=== PATIENT | male | born 1985 | race Caucasian/White ===

== ENCOUNTER 2023-08-19 15:05 | Inpatient (IN) | payer OTHER ==
[2023-08-19] MEDS ORDERED: DILTIAZEM DRIP BOLUS FROM BAG 1 MG SOLN IV ONE (16:04)
--- NOTE | 2023-08-19 16:04 | ED ---
General Adult HPI - General Chief complaint: Fever Stated complaint: afib bone infection Time Seen by Provider: 08/19/23 15:21 Source: patient Mode of arrival: ambulatory Limitations: no limitations - History of Present Illness Initial comments: Augustine 38-year-old male with a history of poorly controlled diabetes, hypertension, tobacco abuse. Patient had osteomyelitis of the right pinky toe with MB patient of the toe in the fall. Patient was at school on antibiotics which she completed a couple of weeks ago. Despite being compliant with this treatment he's had progressively worsening pain and swelling. Patient was evaluated at outside hospital today where he was noted to be likely septic with osteomyelitis that his advanced into the foot with a pathological fracture of the cuboid. Patient is also noted be febrile and tachycardic with new onset atrial fibrillation with RVR. Patient was treated at outside hospital with vancomycin and Cardizem and heparin however patient declined ambulance transport IVs were removed and he transported to the ER here for further management. Patient states that he wants the remainder of the bones amputated tomorrow so that he can be at work by Wednesday. - Related Data Home Medications Medication Instructions Recorded Confirmed Dulaglutide [Trulicity] 3 mg SQ TH 08/19/23 08/19/23 Lisdexamfetamine Dimesylate 30 mg PO DAILY PRN 08/19/23 08/19/23 [Vyvanse] Allergies Allergy/AdvReac Type Severity Reaction Status Date / Time cefaclor [From Ceclor] Allergy Unknown Verified 08/19/23 16:21 Penicillins Allergy Unknown Verified 08/19/23 16:21 Childhood Sulfa (Sulfonamide Allergy Unknown Verified 08/19/23 16:21 Antibiotics) Childhood Review of Systems ROS Statement: Those systems with pertinent positive or pertinent negative responses have been documented in the HPI. ROS Other: All systems not noted in ROS Statement are negative. Past Medical History Past Medical History: Atrial Fibrillation, Diabetes Mellitus, Hypertension Additional Past Medical History / Comment(s): Bone infection- right foot. sepsis History of Any Multi-Drug Resistant Organisms: None Reported Additional Past Surgical History / Comment(s): Toe removed right foot Past Psychological History: No Psychological Hx Reported Smoking Status: Current every day smoker Past Alcohol Use History: Occasional Past Drug Use History: None Reported General Exam Limitations: no limitations General appearance: alert, anxious Head exam: Present: atraumatic, normocephalic Eye exam: Present: PERRL Respiratory exam: Absent: respiratory distress Cardiovascular Exam: Present: tachycardia, irregular rhythm GI/Abdominal exam: Absent: distended Rectal exam: Present: deferred Extremities exam: Present: full ROM, other (Right foot in dressing) Neurological exam: Present: alert, oriented X3 Psychiatric exam: Present: agitated Skin exam: Present: warm, dry, other (Chronic wound of right foot) Course Vital Signs 08/19/23 08/19/23 08/19/23 15:36 16:07 16:25 Temperature 100.4 F H Pulse Rate 43 L 160 H Pulse Rate [ 156 H [employer] ] Respiratory 18 18 Rate Blood Pressure 168/88 87/62 O2 Sat by Pulse 99 Oximetry 08/19/23 08/19/23 08/19/23 16:38 17:04 18:25 Temperature 102.9 F H 100.2 F H Pulse Rate 180 H 156 H 122 H Pulse Rate [ [employer] ] Respiratory 24 20 18 Rate Blood Pressure 110/94 135/65 102/58 O2 Sat by Pulse 98 94 L Oximetry 08/19/23 18:49 Temperature 99.5 F Pulse Rate Pulse Rate [ [employer] ] Respiratory Rate Blood Pressure O2 Sat by Pulse Oximetry EKG Findings - EKG Comments: EKG Findings:: EKG interpreted by me, EKG obtained due to tachycardia, EKG obtained at 1600, rate is 149 rhythm is a narrow complex irregularly irregular tachycardic rhythm concerning for atrial fibrillation. QRS 82 QTc 347. There is no apparent ST elevations or depressions is no evidence of acute ischemia or infarction. Procedures - Sepsis Sepsis Focused Exam #1 Time Sepsis Criteria Met: 16:00 Sepsis Focused Exam Date: 08/19/23 Sepsis Focused Exam Time: 18:30 Sepsis Focused Exam Complete: Yes Vital Signs & RN Notes Reviewed: Yes Capillary Refill: < 2 Seconds: Fingers Peripheral Pulses: Strong: Radial (R), Radial (L) Skin Color: Normal for Patient Respiratory Exam: normal lung sounds Cardiovascular Exam: tachycardia, irregular rhythm Medical Decision Making - Medical Decision Making Was pt. sent in by a medical professional or institution (, PA, CONTRACT FORESTER, urgent care, hospital, or fpc...) When possible be specific @ -No Did you speak to anyone other than the patient for history (EMS, parent, family, police, friend...)? What history was obtained from this source @ -No Did you review nursing and triage notes (agree or disagree)? Why? @ -I reviewed and agree with nursing and triage notes Were old charts reviewed (outside hosp., previous admission, EMS record, old EKG, old radiological studies, urgent care reports/EKG's, fpc records)? Report findings @ -No old charts were reviewed Differential Diagnosis (chest pain, altered mental status, abdominal pain women, abdominal pain men, vaginal bleeding, weakness, fever, dyspnea, syncope, headache, dizziness, GI bleed, back pain, seizure, CVA, palpatations, mental health)? @ -not applicable EKG interpreted by me (3pts min.). @ -As above X-rays interpreted by me (1pt min.). @ -None done CT interpreted by me (1pt min.). @ -None done U/S interpreted by me (1pt. min.). @ -None done What testing was considered but not performed or refused? (CT, X-rays, U/S, labs)? Why? @ -None What meds were considered but not given or refused? Why? @ -Patient initially declined Motrin due to having taken an excessive amount prior to transfer Did you discuss the management of the patient with other professionals (professionals i.e. , PA, CONTRACT FORESTER, lab, RT, psych nurse, social staff worker, crane operator, teacher, special assets officer, patient case coordinator)? Give summary @ -This was transferring team, the admitting doctor and infectious disease Was smoking cessation discussed for >3mins.? @ -No Was critical care preformed (if so, how long)? @ -Yes, 45 minutes Were there social determinants of health that impacted care today? How? (Homelessness, low income, unemployed, alcoholism, drug addiction, transportation, low edu. Level, literacy, decrease access to med. care, skilled nursing, rehab)? @ -No Was there de-escalation of care discussed even if they declined (Discuss DNR or withdrawal of care, Hospice)? DNR status @ -Yes, patient wishes to be DO NOT RESUSCITATE he does understand he will likely have to be made full code for the OR should he need surgery What co-morbidities impacted this encounter? (DM, HTN, Smoking, COPD, CAD, Cancer, CVA, ARF, Chemo, Hep., AIDS, mental health diagnosis, sleep apnea, morbid obesity)? @ - Diabetes Was patient admitted / discharged? Hospital course, mention meds given and route, prescriptions, significant lab abnormalities, going to OR and other pertinent info. @ -Admit Met sepsis criteria at outpatient Hospital received antibiotics and IV fluids Patient was seen and evaluated immediately upon arrival to the emergency department. In the triage azar it was noted that he was bradycardic however on exam he was profoundly tachycardic he was taken to the resuscitation bay to and a septic workup was initiated. Review of previous ER notes stated that the patient converted from A. fib RVR to sinus rhythm with Cardizem. Cardizem and heparin were ordered for new onset A. fib. Vancomycin was ordered patient received a dose prior to arrival, additional dose given here His and was titrated up due to persistent tachycardia Antipyretics and fluids ordered for sepsis - patient clinically improving, Undiagnosed new problem with uncertain prognosis? @ -No Drug Therapy requiring intensive monitoring for toxicity (Heparin, Nitro, Insulin, Cardizem)? @ -No Were any procedures done? @ -No Diagnosis/symptom? @ -Sepsis Acute, or Chronic, or Acute on Chronic? @ -Acute Uncomplicated (without systemic symptoms) or Complicated (systemic symptoms)? @ -Complicated Side effects of treatment? @ -No Exacerbation, Progression, or Severe Exacerbation? @ -No Poses a threat to life or bodily function? How? (Chest pain, USA, LA, pneumonia, PE, COPD, DKA, ARF, appy, cholecystitis, CVA, Diverticulitis, Homicidal, Suicidal, threat to staff... and all critical care pts) @ -Yes can advance his septic shock resulting in cardiovascular collapse Diagnosis/symptom? @ Osteomyelitis Acute, or Chronic, or Acute on Chronic? @ -Chronic Uncomplicated (without systemic symptoms) or Complicated (systemic symptoms)? @ -Complicated causing sepsis Side effects of treatment? @ -none Exacerbation, Progression, or Severe Exacerbation] @ -no Poses a threat to life or bodily function? @ -Yes Diagnosis/symptom? @ -New onset Afib RVR Acute, or Chronic, or Acute on Chronic? @ -default Uncomplicated (without systemic symptoms) or Complicated (systemic symptoms)? @ -Complicated Side effects of treatment? @ -none Exacerbation, Progression, or Severe Exacerbation] @ -no Poses a threat to life or bodily function? @ -Yes - Lab Data Result diagrams: 08/19/23 16:38 08/19/23 16:38 Lab Results 08/19/23 08/19/23 08/19/23 Range/Units 16:38 16:38 16:38 WBC 25.8 H (3.8-10.6) k/uL RBC 4.16 L (4.30-5.90) m/uL Hgb 13.4 (13.0-17.5) gm/dL Hct 40.9 (39.0-53.0) % MCV 98.5 (80.0-100.0) fL MCH 32.3 (25.0-35.0) pg MCHC 32.8 (31.0-37.0) g/dL RDW 12.0 (11.5-15.5) % Plt Count 370 (150-450) k/uL MPV 8.1 Neutrophils % 87 % Lymphocytes % 5 % Monocytes % 4 % Eosinophils % 2 % Basophils % 0 % Neutrophils # 22.5 H (1.3-7.7) k/uL Lymphocytes # 1.3 (1.0-4.8) k/uL Monocytes # 1.0 (0-1.0) k/uL Eosinophils # 0.6 (0-0.7) k/uL Basophils # 0.1 (0-0.2) k/uL PT 11.9 (10.0-12.5) sec INR 1.1 (<1.2) APTT 25.4 (22.0-30.0) sec Sodium 133 L (137-145) mmol/L Potassium 4.8 (3.5-5.1) mmol/L Chloride 101 (98-107) mmol/L Carbon Dioxide 17 L (22-30) mmol/L Anion Gap 15 mmol/L BUN 20 (9-20) mg/dL Creatinine 1.02 (0.66-1.25) mg/dL Est GFR (CKD-EPI)AfAm >90 (>60 ml/min/1.73 sqM) Est GFR (CKD-EPI)NonAf >90 (>60 ml/min/1.73 sqM) Glucose 433 H (74-99) mg/dL Plasma Lactic Acid Ezio (0.7-2.0) mmol/L Calcium 8.7 (8.4-10.2) mg/dL Total Bilirubin 0.8 (0.2-1.3) mg/dL AST 28 (17-59) U/L ALT 25 (4-49) U/L Alkaline Phosphatase 194 H (38-126) U/L Total Protein 7.4 (6.3-8.2) g/dL Albumin 3.6 (3.5-5.0) g/dL 08/19/23 Range/Units 16:38 WBC (3.8-10.6) k/uL RBC (4.30-5.90) m/uL Hgb (13.0-17.5) gm/dL Hct (39.0-53.0) % MCV (80.0-100.0) fL MCH (25.0-35.0) pg MCHC (31.0-37.0) g/dL RDW (11.5-15.5) % Plt Count (150-450) k/uL MPV Neutrophils % % Lymphocytes % % Monocytes % % Eosinophils % % Basophils % % Neutrophils # (1.3-7.7) k/uL Lymphocytes # (1.0-4.8) k/uL Monocytes # (0-1.0) k/uL Eosinophils # (0-0.7) k/uL Basophils # (0-0.2) k/uL PT (10.0-12.5) sec INR (<1.2) APTT (22.0-30.0) sec Sodium (137-145) mmol/L Potassium (3.5-5.1) mmol/L Chloride (98-107) mmol/L Carbon Dioxide (22-30) mmol/L Anion Gap mmol/L BUN (9-20) mg/dL Creatinine (0.66-1.25) mg/dL Est GFR (CKD-EPI)AfAm (>60 ml/min/1.73 sqM) Est GFR (CKD-EPI)NonAf (>60 ml/min/1.73 sqM) Glucose (74-99) mg/dL Plasma Lactic Acid Ezio 3.8 H* (0.7-2.0) mmol/L Calcium (8.4-10.2) mg/dL Total Bilirubin (0.2-1.3) mg/dL AST (17-59) U/L ALT (4-49) U/L Alkaline Phosphatase (38-126) U/L Total Protein (6.3-8.2) g/dL Albumin (3.5-5.0) g/dL Disposition Clinical Impression: Sepsis, Atrial fibrillation with RVR, New onset a-fib, Osteomyelitis Disposition: ADMITTED IP TO THIS HOSP Condition: Serious Is patient prescribed a controlled substance at d/c from ED?: No
[2023-08-19] MEDS: IBUPROFEN 600 MG TAB PO STA ×2 (16:22→16:29)
[2023-08-19] MEDS: ACETAMINOPHEN TAB 500 MG TAB PO STA ×2 (16:22→16:24)
[2023-08-19] MEDS: DILTIAZEM 125 MG in SODIUM CHLORIDE 0.9% 100 ML IV SCH ×2 (16:36→23:53)
[2023-08-19] MEDS: HEPARIN SOD,PORK IN 0.45% NACL 25,000 UNIT in 0.45% NACL 1 250ML.BAG IV SCH (16:36)
[2023-08-19] MEDS ORDERED: ACETAMINOPHEN IV (For NPO) 1,000 MG in EMPTY BAG 1 BAG IVPB STA (16:37)
[2023-08-19] MEDS ORDERED: MAG HYDROX/AL HYDROX/SIMETH 30 ML, HYOSCYAMINE ELIXIR 10 ML, LIDOCAINE VISCOUS 200 MG PO STA ×3 (16:44)
[2023-08-19] MEDS ORDERED: ACETAMINOPHEN TAB 325 MG TAB PO PRN (17:02)
[2023-08-19] MEDS ORDERED: NALOXONE 0.4 MG/ML 1 ML VIAL IV PRN (17:02)
[2023-08-19] MEDS ORDERED: VANCOMYCIN IV PER PHARMACY 1 EACH MISC MISCELLANE PRN (17:07)
[2023-08-19] MEDS ORDERED: VANCOMYCIN 1,500 MG in SODIUM CHLORIDE 0.9% 500 ML 500 ML IVPB STA (17:11)
[2023-08-19 17:27] LABS: Basophils # (A) 0.1 k/uL (0-0.2); Basophils % (A) 0 %; Eosinophils # (A) 0.6 k/uL (0-0.7); Eosinophils % (A) 2 %; HCT 40.9 % (39.0-53.0); HGB 13.4 gm/dL (13.0-17.5); Lymphocytes # (A) 1.3 k/uL (1.0-4.8); Lymphocytes % (A) 5 %; MCH 32.3 pg (25.0-35.0); MCHC 32.8 g/dL (31.0-37.0); MCV 98.5 fL (80.0-100.0); Mean Platelet Volume 8.1; Monocytes % (A) 4 %; Neutrophils # (A) 22.5 k/uL (1.3-7.7); Neutrophils % (A) 87 %; Platelet Count 370 k/uL (150-450); RBC 4.16 m/uL (4.30-5.90); WBC 25.8 k/uL (3.8-10.6)
[2023-08-19 17:36] LABS: INR 1.1 (<1.2); Partial Thromboplastin Time 25.4 sec (22.0-30.0); Prothrombin Time 11.9 sec (10.0-12.5)
[2023-08-19] MEDS: SODIUM CHLORIDE 0.9% 1,000 ML IV SCH (17:39)
[2023-08-19 17:57] LABS: ALT 25 U/L (4-49); African American GFR (CKD) >90 (>60 ml/min/1.73 sqM); Albumin 3.6 g/dL (3.5-5.0); Anion Gap 15 mmol/L; Blood Urea Nitrogen 20 mg/dL (9-20); Calcium 8.7 mg/dL (8.4-10.2); Carbon Dioxide 17 mmol/L (22-30); Chloride 101 mmol/L (98-107); Glucose 433 mg/dL (74-99); Non-African American GFR(CKD) >90 (>60 ml/min/1.73 sqM); Sodium 133 mmol/L (137-145); Total Bilirubin 0.8 mg/dL (0.2-1.3); Total Protein 7.4 g/dL (6.3-8.2)
[2023-08-19 17:58] LABS: AST 28 U/L (17-59); Alkaline Phosphatase 194 U/L (38-126); Potassium 4.8 mmol/L (3.5-5.1)
[2023-08-19] MEDS ORDERED: ERTAPENEM 1 GM in SODIUM CHLORIDE 0.9% 50 ML IVPB STA (18:51)
[2023-08-19] MEDS ORDERED: INSULIN REGULAR 100 UNIT/ML VIAL (IV) IV ONE (18:53)
[2023-08-19 20:10] LABS: Glucose,Whole Blood 405 mg/dL (70-110)
--- NOTE | 2023-08-19 21:39 | CT ---
EXAMINATION TYPE: CT chest wo con CT DLP: 661.2 mGycm, Automated exposure control for dose reduction was used. DATE OF EXAM: 08/19/2023 9:31 PM COMPARISON: None. CLINICAL INDICATION:Male, 38 years old with history of cap; AFIB TECHNIQUE: Multiple axial images were obtained through the chest. Sagittal and coronal reformats were created for review. Contrast used: (None if empty) Oral contrast used: (None if empty) FINDINGS: LUNGS/ PLEURA: Subsegmental atelectasis is present in the lung bases. No evidence of pleural effusion or pneumothorax. AIRWAY: Patent and unremarkable. HEART: Size within normal limits. MEDIASTINUM: No gross evidence of adenopathy. VASCULATURE: No aortic aneurysm. MUSCULOSKELETAL: No acute osseous abnormalities SOFT TISSUES/LYMPH NODES: Unremarkable. LOWER NECK: No significant findings. UPPER ABDOMEN: No significant findings. IMPRESSION: No acute process.
[2023-08-19] MEDS: IBUPROFEN 400 MG TAB PO PRN (21:53)
[2023-08-19] MEDS: HEPARIN SODIUM 1,000 UN/ML (10ML VL) IV PRN (23:53)
[2023-08-20] MEDS ORDERED: DEXTROSE 50% SYRINGE 50 ML IVP PRN ×2 (00:24)
--- NOTE | 2023-08-20 01:22 | HP ---
HISTORY AND PHYSICAL HISTORY OF PRESENT ILLNESS: This is a 38-year-old white male, chronic history of smoking for many years, about 40- t0 [id number], worsening wound in the right lower leg, then not improving after like 10 months. Atrial fibrillation with RVR. He came to the ER with atrial fibrillation RVR, worsening swelling in his legs. He was thought to have osteomyelitis and an MRI was sent to the hospital for pathological fractures 2 way, once his bones were removed surgically, so will get a vascular consult that is pending. ALLERGIES: Penicillin. PAST MEDICAL HISTORY: Atrial fibrillation, diabetes mellitus, hypertension. SOCIAL HISTORY: Current everyday smoker. PHYSICAL EXAMINATION: VITAL SIGNS: T-max is 100.4, pulse rate mid 100s, respiratory rate 18, O2 99%. CARDIOVASCULAR: S1, S2, irregularly irregular rhythm. LUNGS: Show rales at the bases, rhonchi at bases. HEMATOLOGIC: 2 to 3+ edema. EXTREMITIES: Right lower leg and ankle are severely swollen, about 50% foot. EKG shows sinus tachycardia versus atrial fibrillation, treated with Cardizem drip. Vancomycin started for healthcare acquired pneumonia. Leukocytosis. White count was 25.8. Sodium is low at 133. Sugars 433 uncontrolled. Lactic acid 3.9. ASSESSMENT: Lactic acidosis sepsis, osteomyelitis of the foot, insulin-dependent diabetes mellitus, uncontrolled COPD. Prognosis guarded. IV antibiotics updraft. Echo, EKG atrial fibrillation control. Cardiology consult. Infectious Disease consult. Vascular consult. MMDOML / RICARDON: [id number] /
[2023-08-20 06:12] LABS: Glucose,Whole Blood 201 mg/dL (70-110)
[2023-08-20] MEDS: DILTIAZEM 125 MG in SODIUM CHLORIDE 0.9% 100 ML IV SCH (06:24)
[2023-08-20] MEDS: INSULIN ASPART (NovoLOG) 100 UNIT/ML VIAL SQ SCH ×4 (06:25→20:43)
[2023-08-20] MEDS: SODIUM CHLORIDE 0.9% 1,000 ML IV SCH ×2 (06:26→17:48)
[2023-08-20] MEDS: VANCOMYCIN 1,500 MG in SODIUM CHLORIDE 0.9% 500 ML 500 ML IVPB SCH ×2 (06:27→17:47)
[2023-08-20 08:00] LABS: Basophils # (A) 0.1 k/uL (0-0.2); Basophils % (A) 0 %; Eosinophils # (A) 0.3 k/uL (0-0.7); Eosinophils % (A) 1 %; HGB 11.1 gm/dL (13.0-17.5); Lymphocytes # (A) 1.6 k/uL (1.0-4.8); Lymphocytes % (A) 7 %; MCH 32.8 pg (25.0-35.0); MCHC 33.7 g/dL (31.0-37.0); MCV 97.4 fL (80.0-100.0); Mean Platelet Volume 7.6; Monocytes # (A) 0.9 k/uL (0-1.0); Monocytes % (A) 4 %; Neutrophils # (A) 19.7 k/uL (1.3-7.7); Neutrophils % (A) 86 %; Platelet Count 319 k/uL (150-450); RBC 3.39 m/uL (4.30-5.90); RDW 12.2 % (11.5-15.5); WBC 23.1 k/uL (3.8-10.6)
[2023-08-20 08:16] LABS: African American GFR (CKD) >90 (>60 ml/min/1.73 sqM); Anion Gap 8 mmol/L; Blood Urea Nitrogen 20 mg/dL (9-20); Calcium 7.8 mg/dL (8.4-10.2); Carbon Dioxide 19 mmol/L (22-30); Chloride 107 mmol/L (98-107); Glucose 204 mg/dL (74-99); Non-African American GFR(CKD) >90 (>60 ml/min/1.73 sqM); Potassium 3.7 mmol/L (3.5-5.1); Sodium 134 mmol/L (137-145)
[2023-08-20 08:19] LABS: Prothrombin Time 11.3 sec (10.0-12.5)
[2023-08-20] MEDS ORDERED: HEPARIN SODIUM 1,000 UN/ML (10ML VL) IVP STA ×3 (08:34→16:28)
[2023-08-20] MEDS ORDERED: ERTAPENEM 1 GM in SODIUM CHLORIDE 0.9% 50 ML IVPB SCH (09:00)
[2023-08-20] MEDS: METOPROLOL TARTRATE 50 MG TAB PO SCH ×2 (09:23→19:58)
[2023-08-20] MEDS: IPRATROPIUM-ALBUTEROL 3 ML NEB INHALATION SCH ×4 (09:42→21:21)
[2023-08-20] MEDS: HEPARIN SOD,PORK IN 0.45% NACL 25,000 UNIT in 0.45% NACL 1 250ML.BAG IV SCH (10:33)
[2023-08-20] MEDS ORDERED: ACETAMINOPHEN IV (For NPO) 1,000 MG in EMPTY BAG 1 BAG IVPB ONE (10:35)
--- NOTE | 2023-08-20 10:38 | CA ---
Transthoracic Echo Report Name: Augustine Newberry Age: 38 Gender: M : 1985 Exam Date: 08/20/2023 08:58 Exam Location: [facility] Ht (in): 69 Wt (lb): 210 Ordering Physician: Bonifacio Vázquez MD Attending/Referring Phys: Cranberry Grower Mary Jenkins RDCS Procedure CPT: Indications: CAD Cardiac Hx: Technical Quality: Good Contrast 1: Total Dose (mL): Contrast 2: Total Dose (mL): MEASUREMENTS (Male / Female) Normal Values 2D ECHO LV Diastolic Diameter PLAX 4.8 cm 4.2 - 5.9 / 3.9 - 5.3 cm LV Systolic Diameter PLAX 3.7 cm IVS Diastolic Thickness 1.5 cm 0.6 - 1.0 / 0.6 - 0.9 cm LVPW Diastolic Thickness 1.4 cm 0.6 - 1.0 / 0.6 - 0.9 cm LV Relative Wall Thickness 0.6 RV Internal Dim ED PLAX 3.4 cm LA Systolic Diameter LX 4.0 cm 3.0 - 4.0 / 2.7 - 3.8 cm LV Diastolic Volume MOD 4C 125.3 cm??? LV Systolic Volume MOD 4C 66.5 cm??? LV Ejection Fraction MOD 4C 47.0 % LV Cardiac Index MOD 4C 2564.6 cm???/min???m??? LV Diastolic Length 4C 9.4 cm LV Systolic Length 4C 7.4 cm LV Diastolic Volume MOD 2C 116.6 cm??? LV Systolic Volume MOD 2C 61.1 cm??? LV Ejection Fraction MOD 2C 47.6 % LV Cardiac Index MOD 2C 2419.2 cm???/min???m??? LV Diastolic Length 2C 9.2 cm LV Systolic Length 2C 7.5 cm LA Volume 80.0 cm??? 18 - 58 / 22 - 52 cm??? LA Volume Index 36.7 cm???/m??? 16 - 28 cm???/m??? M-MODE Aortic Root Diameter MM 4.0 cm LA Systolic Diameter MM 4.1 cm LA Ao Ratio MM 1.0 AV Cusp Separation MM 2.7 cm DOPPLER AV Peak Velocity 177.0 cm/s AV Peak Gradient 12.5 mmHg Mitral E Point Velocity 129.1 cm/s Mitral A Point Velocity 72.7 cm/s Mitral E to A Ratio 1.8 MV Deceleration Time 146.6 ms TR Peak Velocity 210.4 cm/s TR Peak Gradient 17.7 mmHg Right Ventricular Systolic Press 28.0 mmHg FINDINGS Left Ventricle Left ventricular ejection fraction is estimated at 55-60 %. Left ventricular cavity size normal. Moderately increased septal wall thickness. Right Ventricle Mild right ventricular dilatation. Right ventricular systolic pressure within normal limits. Right Atrium Normal right atrial size. Left Atrium Moderately increased left atrial volume. Mildly increased left atrial area. Mitral Valve Structurally normal mitral valve. Mild mitral regurgitation. Aortic Valve Trileaflet aortic valve. No aortic valve stenosis or regurgitation. Tricuspid Valve Structurally normal tricuspid valve. Mild tricuspid regurgitation. Pulmonic Valve Structurally normal pulmonic valve. No pulmonic regurgitation. Pericardium No pericardial effusion. Aorta Mild aortic dilatation at the level of the sinuses of valsalva 40 mm CONCLUSIONS Mild LVH with preserved systolic function Previewed by: Dr. Flaco North MD (Electronically Signed) Final Date: 20 August 2023 10:37
[2023-08-20] MEDS ORDERED: TRULICITY 3 MG/0.5 ML SQ SCH (12:00)
--- NOTE | 2023-08-20 12:12 | P.CRDCN ---
History of Present Illness Consult date: 08/20/23 Consult reason: atrial fibrillation (With RVR) History of present illness: History of present illness: This is a 38-year-old male with past medical history of uncontrolled diabetes, osteomyelitis of the right foot, tobacco use and dependence, hemochromatosis, tobacco use and dependence. We have been asked to evaluate the patient for A- fib with RVR. Patient has no previous history of atrial fibrillation and does not follow with a supervisor pastry. Patient was at [facility] for fever of 103-104 that had been going on for about 2 weeks and also had tachycardia thought to be in atrial fibrillation was started on heparin drip and Cardizem drip. He had an outpatient MRI done on August 18 which did show osteomyelitis of the right foot. Patient was transferred to [facility] for further evaluation and treatment. EKG sinus rhythm with no acute ST changes. Echocardiogram reveals mild LVH with preserved systolic function, mild mitral regurgitation, no aortic valve stenosis or regurgitation. Mild tricuspid regurgitation. CTA of the chest reveals no acute process. WBC 25.8 now 23.1, hemoglobin 9.1, platelet count 319. INR 1. Sodium 134, potassium 3.7, BUN 20 creatinine 1.01. Initial blood sugar was 433. Lactic acid 1.2. Alkaline phosphatase 194 otherwise liver function tests were normal. Home cardiac medications: None Review Of Systems: At the time of my evaluation: Constitutional: No fever, no chills. No weakness, fatigue or lethargy. EENT: No headache. No dizziness. Lungs: No shortness of breath, cough, no sputum production. No wheezing. Cardiovascular: No chest pain, no lower extremity edema. No palpitations. No paroxysmal nocturnal dyspnea. No orthopnea. No lightheadedness or dizziness. No syncopal episodes. Abdominal: No abdominal pain. No nausea, vomiting. No diarrhea. No constipation. No bloody or tarry stools. Genitourinary: No dysuria.. No urinary retention. Musculoskeletal: No myalgias. No muscle weakness, no frequent falls. No back pain. No neck pain. Integumentary: No wounds. No rash. No unusual bruising. Neurologic: No aphasia. No facial droop. No change in mentation. No head injury. No headache. Physical examination: Gen: This is a 38-year-old male in no acute distress VS: reviewed blood pressure 116/68, heart rate 90 HEENT: Head is atraumatic, normocephalic. Pupils equal, round. Sclerae is anicteric. NECK: Supple. No JVD. . LUNGS: Clear to auscultation. No wheezes or rhonchi. No intercostal retractions. HEART: Regular rate and rhythm. No murmur. ABDOMEN: Soft No tenderness. EXTREMITIES: No pedal edema. No calf tenderness. NEUROLOGICAL: Patient is awake, alert and oriented x3. Assessment: New onset atrial fibrillation, paroxysmal Uncontrolled diabetes Osteomyelitis of the right foot Active tobacco use and dependence Plan: Continue patient on heparin drip until evaluated by vascular surgery. Patient will be started on Eliquis following any surgical procedures. Discontinue Cardizem drip Start patient on Lopressor 50 mg twice daily Further recommendations to follow based upon clinical course Thank you kindly for this consultation. Nurse practitioner note has been reviewed, I agree with documented findings and plan of care. Patient was seen and examined. Past Medical History Past Medical History: Atrial Fibrillation, Diabetes Mellitus, Hypertension Additional Past Medical History / Comment(s): Bone infection- right foot. sepsis History of Any Multi-Drug Resistant Organisms: None Reported Past Surgical History: Orthopedic Surgery Additional Past Surgical History / Comment(s): Toe removed right foot Past Anesthesia/Blood Transfusion Reactions: No Reported Reaction Past Psychological History: No Psychological Hx Reported Smoking Status: Current every day smoker Past Alcohol Use History: Occasional Past Drug Use History: None Reported Medications and Allergies Home Medications Medication Instructions Recorded Confirmed Type Dulaglutide [Trulicity] 3 mg SQ TH 08/19/23 08/19/23 History Lisdexamfetamine Dimesylate 30 mg PO DAILY PRN 08/19/23 08/19/23 History [Vyvanse] Allergies Allergy/AdvReac Type Severity Reaction Status Date / Time cefaclor [From [facility]] Allergy Unknown Verified 08/19/23 16:21 Penicillins Allergy Unknown Verified 08/19/23 16:21 Childhood Sulfa (Sulfonamide Allergy Unknown Verified 08/19/23 16:21 Antibiotics) Childhood Physical Exam Vitals: Vital Signs Temp Pulse Pulse Resp BP BP Pulse Ox 08/20/23 09:50 99 08/20/23 09:44 100 08/20/23 09:42 101 H 08/20/23 08:00 98.4 F 100 16 138/66 95 08/20/23 04:00 97.6 F 90 16 116/68 94 L 08/20/23 02:00 89 18 08/20/23 00:00 98.0 F 89 18 105/63 94 L 08/19/23 20:00 97.6 F 121 H 18 104/60 97 08/19/23 18:49 99.5 F 08/19/23 18:25 100.2 F H 122 H 18 102/58 94 L 08/19/23 17:04 102.9 F H 156 H 20 135/65 98 08/19/23 16:38 180 H 24 110/94 08/19/23 16:25 160 H 18 87/62 08/19/23 16:07 156 H 08/19/23 15:36 100.4 F H 43 L 18 168/88 99 Intake and Output 08/19/23 08/20/23 08/20/23 22:59 06:59 14:59 Intake Total 18.250 249.00 620.217 Balance 18.250 249.00 620.217 Intake: Intake, IV Titration 18.250 249.00 140.217 Amount Diltiazem 125 mg In 18.250 176.00 Sodium Chloride 0.9% 100 ml @ 5 MG/HR 5 mls/hr IV .Q24H [facility] Rx#:[id number] Heparin Sod,Pork in 0.45% 73 140.217 NaCl 25,000 unit In 0.45 % NaCl 1 250ml.bag @ 10. 498 UNITS/KG/HR 10 mls/hr IV .Q24H [facility] Rx#: [id number] Oral 480 Other: Voiding Method Toilet Toilet Toilet Urinal Urinal Urinal # Voids 1 1 Weight 95.254 kg Results 08/20/23 07:36 08/20/23 07:36 Cardiac Enzymes 08/19/23 Range/Units 16:38 AST 28 (17-59) U/L Coagulation 08/19/23 08/19/23 08/20/23 Range/Units 16:38 22:37 07:36 PT 11.9 11.3 (10.0-12.5) sec APTT 25.4 30.4 H (22.0-30.0) sec 08/20/23 Range/Units 07:36 PT (10.0-12.5) sec APTT 29.4 (22.0-30.0) sec CBC 08/19/23 08/20/23 Range/Units 16:38 07:36 WBC 25.8 H 23.1 H (3.8-10.6) k/uL RBC 4.16 L 3.39 L (4.30-5.90) m/uL Hgb 13.4 11.1 L (13.0-17.5) gm/dL Hct 40.9 33.0 L (39.0-53.0) % Plt Count 370 319 (150-450) k/uL Comprehensive Metabolic Panel 08/19/23 08/20/23 Range/Units 16:38 07:36 Sodium 133 L 134 L (137-145) mmol/L Potassium 4.8 3.7 (3.5-5.1) mmol/L Chloride 101 107 (98-107) mmol/L Carbon Dioxide 17 L 19 L (22-30) mmol/L BUN 20 20 (9-20) mg/dL Creatinine 1.02 1.01 (0.66-1.25) mg/dL Glucose 433 H 204 H (74-99) mg/dL Calcium 8.7 7.8 L (8.4-10.2) mg/dL AST 28 (17-59) U/L ALT 25 (4-49) U/L Alkaline Phosphatase 194 H (38-126) U/L Total Protein 7.4 (6.3-8.2) g/dL Albumin 3.6 (3.5-5.0) g/dL Current Medications Generic Name Dose Route Start Last Admin Trade Name Johnq PRN Reason Stop Dose Admin Acetaminophen 650 mg 08/19/23 17:02 Acetaminophen Tab 325 Mg Tab PO Q6HR PRN Mild Pain or Fever > 100.5 Albuterol/Ipratropium 3 ml 08/20/23 08:00 08/20/23 09:42 Ipratropium-Albuterol 3 Ml Neb INHALATION 3 ml RT-QID [facility] Administration Dextrose/Water 25 ml 08/20/23 00:24 Dextrose 50% Syringe 50 Ml IVP PER PROTOCOL PRN Hypoglycemia Protocol Dextrose/Water 50 ml 08/20/23 00:24 Dextrose 50% Syringe 50 Ml IVP PER PROTOCOL PRN Hypoglycemia Protocol Heparin Sodium (Porcine) 0 unit 08/19/23 16:04 08/19/23 23:53 Heparin Sodium 1,000 Un/Ml (10ml Vl) IV 4,750 unit PER PROTOCOL PRN Administration Low PTT Protocol Hydromorphone HCl 0.5 mg 08/19/23 17:02 Hydromorphone 0.5 Mg/0.5 Ml Syringe IVP Q3HR PRN Moderate Pain (Scale 4 to 6) Heparin Sodium/Sodium Chloride 250 mls @ 10 mls/hr 08/19/23 16:30 08/20/23 10:33 25,000 unit/ Sodium Chloride IV 16.5 units/kg/hr .Q24H [facility] 15.717 mls/hr Administration Protocol 10.498 UNITS/KG/HR Sodium Chloride 1,000 mls @ 75 mls/hr 08/19/23 17:15 08/20/23 06:26 Saline 0.9% IV 75 mls/hr .[id number] [facility] Administration Vancomycin HCl 1,500 mg/ 500 mls @ 167 mls/hr 08/20/23 06:00 08/20/23 06:27 Sodium Chloride IVPB 167 mls/hr Q12H [facility] Administration Ertapenem 1 gm/ Sodium 50 mls @ 100 mls/hr 08/20/23 09:00 08/20/23 10:32 Chloride IVPB 100 mls/hr DAILY [facility] Administration Protocol Ibuprofen 400 mg 08/19/23 17:02 08/19/23 21:53 Ibuprofen 400 Mg Tab PO 400 mg Q6HR PRN Administration Mild Pain or Fever > 100.5 Insulin Aspart 0 unit 08/20/23 07:30 08/20/23 06:25 Insulin Aspart (Novolog) 100 Unit/Ml Vial SQ 4 unit ACHS [facility] Administration Protocol Metoprolol Tartrate 50 mg 08/20/23 09:00 08/20/23 09:23 Metoprolol Tartrate 50 Mg Tab PO 50 mg BID [facility] Administration Miscellaneous Information 0 each 08/21/23 17:00 Vancomycin Trough Due 1 Each Misc MISCELLANE 08/21/23 17:01 DIRECTED ONE Naloxone HCl 0.2 mg 08/19/23 17:02 Naloxone 0.4 Mg/Ml 1 Ml Vial IV Q2M PRN Opioid Reversal Nicotine Polacrilex 2 mg 08/20/23 10:36 Nicotine Gum (Polacrilex) 2 Mg Gum BUCCAL Q2HR PRN Nicotine Cravings Non-Formulary Medication 1 each 08/20/23 11:59 Non Formulary Drug SQ WEEKLY [facility] Intake and Output 08/19/23 08/20/23 08/20/23 22:59 06:59 14:59 Intake Total 18.250 249.00 620.217 Balance 18.250 249.00 620.217 Intake: Intake, IV Titration 18.250 249.00 140.217 Amount Diltiazem 125 mg In 18.250 176.00 Sodium Chloride 0.9% 100 ml @ 5 MG/HR 5 mls/hr IV .Q24H [facility] Rx#:[id number] Heparin Sod,Pork in 0.45% 73 140.217 NaCl 25,000 unit In 0.45 % NaCl 1 250ml.bag @ 10. 498 UNITS/KG/HR 10 mls/hr IV .Q24H [facility] Rx#: [id number] Oral 480 Other: Voiding Method Toilet Toilet Toilet Urinal Urinal Urinal # Voids 1 1 Weight 95.254 kg 08/20/23 07:36 08/20/23 07:36
[2023-08-20] MEDS: NICOTINE GUM (POLACRILEX) 2 MG GUM BUCCAL PRN ×2 (12:35→16:34)
--- NOTE | 2023-08-20 15:56 | P.CONS ---
History of Present Illness - Reason for Consult Consult date: 08/20/23 - History of Present Illness Patient is a 38-year-old male with a past medical history significant for diabetes mellitus hypertension atrial fibrillation, patient also have a history of diabetic foot infection involving his right fifth toe and this patient has been treated at [facility] and vascular surgery at that facility patient was also seen in the outpatient setting at there was concern for possible osteomyelitis patient did have multiple antibiotic allergies and also has been very specific about his work and was reluctant to go on a course of IV antibiotic therapy as the patient was told by his previous physician that he would never need IV antibiotic for his condition anyhow the pa sid did receive Cipro and Flagyl and did have overall improvement in his wound and the patient was referred back to his wound care center for continued good wound care patient mention about 3 weeks ago he started having a fever and chills off and on and noticed to have worsening to his right foot lateral border did have more swelling and redness and some foul-smelling drainage from his wound patient mention they would not give him an antibiotic as they did not want to mess up the MRI the wound care was trying to do an MRI for further workup, patient was evaluated outside facility with the patient was noted to be septic likely from right foot osteomyelitis that the patient have a pathological fracture of the cuboid also manage A-fib with RVR and the patient was transferred to [facility] for further evaluation Case was discussed with me by the ER physician last night patient antibiotic was started on Vanco vancomycin and Invanz pending further workup, patient on presentation to the hospital was febrile with a temperature of 102 F, patient was tachycardic but not hypotensive or hypoxic patient did have a white count of 25.8 which is slightly down to 23.1 today creatinine 1.01 cultures obtained patient did have a CT of the chest no acute process Past Medical History Past Medical History: Atrial Fibrillation, Diabetes Mellitus, Hypertension Additional Past Medical History / Comment(s): Bone infection- right foot. sepsis History of Any Multi-Drug Resistant Organisms: None Reported Past Surgical History: Orthopedic Surgery Additional Past Surgical History / Comment(s): Toe removed right foot Past Anesthesia/Blood Transfusion Reactions: No Reported Reaction Past Psychological History: No Psychological Hx Reported Smoking Status: Current every day smoker Past Alcohol Use History: Occasional Past Drug Use History: None Reported Medications and Allergies Home Medications Medication Instructions Recorded Confirmed Type Dulaglutide [Trulicity] 3 mg SQ TH 08/19/23 08/19/23 History Lisdexamfetamine Dimesylate 30 mg PO DAILY PRN 08/19/23 08/19/23 History [Vyvanse] Allergies Allergy/AdvReac Type Severity Reaction Status Date / Time cefaclor [From [facility]] Allergy Unknown Verified 08/19/23 16:21 Penicillins Allergy Unknown Verified 08/19/23 16:21 Childhood Sulfa (Sulfonamide Allergy Unknown Verified 08/19/23 16:21 Antibiotics) Childhood Physical Exam Vitals: Vital Signs Temp Pulse Pulse Resp BP BP Pulse Ox 08/20/23 04:00 97.6 F 90 16 116/68 94 L 08/20/23 02:00 89 18 08/20/23 00:00 98.0 F 89 18 105/63 94 L 08/19/23 20:00 97.6 F 121 H 18 104/60 97 08/19/23 18:49 99.5 F 08/19/23 18:25 100.2 F H 122 H 18 102/58 94 L 08/19/23 17:04 102.9 F H 156 H 20 135/65 98 08/19/23 16:38 180 H 24 110/94 08/19/23 16:25 160 H 18 87/62 08/19/23 16:07 156 H 08/19/23 15:36 100.4 F H 43 L 18 168/88 99 Intake and Output 08/19/23 08/20/23 08/20/23 22:59 06:59 14:59 Intake Total 18.250 249.00 480 Balance 18.250 249.00 480 Intake: Intake, IV Titration 18.250 249.00 Amount Diltiazem 125 mg In 18.250 176.00 Sodium Chloride 0.9% 100 ml @ 5 MG/HR 5 mls/hr IV .Q24H [facility] Rx#:[id number] Heparin Sod,Pork in 0.45% 73 NaCl 25,000 unit In 0.45 % NaCl 1 250ml.bag @ 10. 498 UNITS/KG/HR 10 mls/hr IV .Q24H [facility] Rx#: [id number] Oral 480 Other: Voiding Method Toilet Toilet Urinal Urinal # Voids 1 1 Weight 95.254 kg Results CBC & Chem 7: 01/19/24 07:36 08/20/23 07:36 Labs: Abnormal Lab Results - Last 24 Hours (Table) 08/19/23 08/19/23 08/19/23 Range/Units 16:38 16:38 16:38 WBC 25.8 H (3.8-10.6) k/uL RBC 4.16 L (4.30-5.90) m/uL Hgb (13.0-17.5) gm/dL Hct (39.0-53.0) % Neutrophils # 22.5 H (1.3-7.7) k/uL APTT (22.0-30.0) sec Sodium 133 L (137-145) mmol/L Carbon Dioxide 17 L (22-30) mmol/L Glucose 433 H (74-99) mg/dL POC Glucose (mg/dL) (70-110) mg/dL Plasma Lactic Acid Ezio 3.8 H* (0.7-2.0) mmol/L Calcium (8.4-10.2) mg/dL Alkaline Phosphatase 194 H (38-126) U/L 08/19/23 08/19/23 08/20/23 Range/Units 20:09 22:37 06:10 WBC (3.8-10.6) k/uL RBC (4.30-5.90) m/uL Hgb (13.0-17.5) gm/dL Hct (39.0-53.0) % Neutrophils # (1.3-7.7) k/uL APTT 30.4 H (22.0-30.0) sec Sodium (137-145) mmol/L Carbon Dioxide (22-30) mmol/L Glucose (74-99) mg/dL POC Glucose (mg/dL) 405 H 201 H (70-110) mg/dL Plasma Lactic Acid Ezio (0.7-2.0) mmol/L Calcium (8.4-10.2) mg/dL Alkaline Phosphatase (38-126) U/L 08/20/23 08/20/23 Range/Units 07:36 07:36 WBC 23.1 H (3.8-10.6) k/uL RBC 3.39 L (4.30-5.90) m/uL Hgb 11.1 L (13.0-17.5) gm/dL Hct 33.0 L (39.0-53.0) % Neutrophils # 19.7 H (1.3-7.7) k/uL APTT (22.0-30.0) sec Sodium 134 L (137-145) mmol/L Carbon Dioxide 19 L (22-30) mmol/L Glucose 204 H (74-99) mg/dL POC Glucose (mg/dL) (70-110) mg/dL Plasma Lactic Acid Ezio (0.7-2.0) mmol/L Calcium 7.8 L (8.4-10.2) mg/dL Alkaline Phosphatase (38-126) U/L Assessment and Plan Plan: 1patient presented to hospital with sepsis in this patient who did have fever tachycardia elevated white count patient did have extensive right diabetic foot infection concerning for underlying abscess and osteomyelitis, patient will need extensive surgery for drainage of this abscess at which time culture should be sent both aerobic and anaerobic awaiting vascular surgery evaluation Case discussed with vascular surgery on the phone 2-patient with multiple antibiotic ALLERGIES that would limit the number of antibiotic safe to use 3we will continue patient on empiric vancomycin and Invanz while awaiting further workup to be completed Prognosis remains to be guarded Patient has been very particular want surgery to be done today and discharged on Wednesday patient has been told it will be not possible As the cultures would not be available and we may not be able to arrange for outpatient IV antibiotics without the culture report however the patient has been adamant that he would like to be discharged on Wednesday otherwise he will lose his job which he cannot afford, and there is no way he can stay in the hospital beyond Wednesday We will follow on clinical condition and cultures to further adjust medication if needed Thank you for this consultation we will follow the patient along with you Dictation was produced using Interactive [employer] dictation software. please excuse any grammatical, word or spelling errors. Time with Patient: Greater than 30
[2023-08-20] MEDS: HYDROmorphone 0.5 MG/0.5 ML SYRINGE IVP PRN ×2 (16:05→19:58)
[2023-08-20] MEDS: ACETAMINOPHEN IV (For NPO) 1,000 MG in EMPTY BAG 1 BAG IVPB PRN ×2 (16:35→23:04)
[2023-08-21] MEDS: HEPARIN SOD,PORK IN 0.45% NACL 25,000 UNIT in 0.45% NACL 1 250ML.BAG IV SCH ×3 (00:30→21:52)
--- NOTE | 2023-08-21 01:29 | PN ---
PROGRESS NOTE SUBJECTIVE: This is a 38-year-old white male. Cardiology saw the patient, had an echocardiogram. Right ventricular systolic pressure 80, moderate increase in left atrial volume. Ejection fraction 55% to 60%. LVH, preserved function. Cardiology saw the patient. CTA is negative. White count is 25.8, now 23, improving infection of the foot. Sugars 433. Lactic acid 1.2. Started on Cardizem for atrial fibrillation with RVR, new-onset atrial fib, paroxysmal, uncontrolled diabetes mellitus, osteomyelitis of the right foot, nicotine addiction, DM, possibly operate on his foot. Continue heparin at this time after vascular surgery operates. Possible switch would Eliquis on discharge for atrial fibrillation, rate control, controlled diabetes mellitus, hypertension, COPD. PROGNOSIS: Guarded. MMODL / IJN: [id number] /
[2023-08-21] MEDS: HEPARIN SODIUM 1,000 UN/ML (10ML VL) IV PRN ×3 (02:12→17:23)
[2023-08-21] MEDS: INSULIN ASPART (NovoLOG) 100 UNIT/ML VIAL SQ SCH ×4 (04:18→19:55)
[2023-08-21] MEDS: ACETAMINOPHEN IV (For NPO) 1,000 MG in EMPTY BAG 1 BAG IVPB PRN ×2 (05:40→15:20)
[2023-08-21] MEDS: HYDROmorphone 0.5 MG/0.5 ML SYRINGE IVP PRN ×3 (05:41→19:24)
[2023-08-21] MEDS: VANCOMYCIN 1,500 MG in SODIUM CHLORIDE 0.9% 500 ML 500 ML IVPB SCH ×3 (05:41→20:11)
[2023-08-21] MEDS: NICOTINE GUM (POLACRILEX) 2 MG GUM BUCCAL PRN ×3 (07:54→19:53)
[2023-08-21] MEDS: METOPROLOL TARTRATE 50 MG TAB PO SCH ×2 (07:54→19:53)
[2023-08-21] MEDS: SODIUM CHLORIDE 0.9% 1,000 ML IV SCH (07:57)
[2023-08-21 09:02] LABS: Basophils # (A) 0.1 k/uL (0-0.2); Basophils % (A) 0 %; Eosinophils # (A) 0.2 k/uL (0-0.7); Eosinophils % (A) 1 %; Lymphocytes # (A) 1.8 k/uL (1.0-4.8); Lymphocytes % (A) 8 %; MCH 32.4 pg (25.0-35.0); MCHC 33.4 g/dL (31.0-37.0); Mean Platelet Volume 7.6; Monocytes # (A) 0.7 k/uL (0-1.0); Monocytes % (A) 3 %; Neutrophils # (A) 19.1 k/uL (1.3-7.7); Neutrophils % (A) 86 %; Platelet Count 316 k/uL (150-450); RBC 3.09 m/uL (4.30-5.90); RDW 12.2 % (11.5-15.5); WBC 22.2 k/uL (3.8-10.6)
[2023-08-21 09:23] LABS: ALT 18 U/L (4-49); AST 23 U/L (17-59); African American GFR (CKD) >90 (>60 ml/min/1.73 sqM); Albumin 2.5 g/dL (3.5-5.0); Alkaline Phosphatase 204 U/L (38-126); Anion Gap 6 mmol/L; Blood Urea Nitrogen 14 mg/dL (9-20); Calcium 7.6 mg/dL (8.4-10.2); Carbon Dioxide 19 mmol/L (22-30); Chloride 108 mmol/L (98-107); Glucose 225 mg/dL (74-99); Non-African American GFR(CKD) >90 (>60 ml/min/1.73 sqM); Potassium 3.8 mmol/L (3.5-5.1); Sodium 133 mmol/L (137-145); Total Bilirubin 0.4 mg/dL (0.2-1.3); Total Protein 5.6 g/dL (6.3-8.2)
[2023-08-21] MEDS: IPRATROPIUM-ALBUTEROL 3 ML NEB INHALATION SCH ×4 (09:54→21:25)
[2023-08-21] MEDS: ERTAPENEM 1 GM in SODIUM CHLORIDE 0.9% 50 ML IVPB SCH (11:19)
[2023-08-21 11:47] LABS: Glucose,Whole Blood 243 mg/dL (70-110)
--- NOTE | 2023-08-21 12:59 | P.GSCN ---
History of Present Illness Consult date: 08/21/23 Reason for Consult: right foot wound History of present illness: 38-year-old male with a past medical history significant for diabetes mellitus and a history of diabetic foot infection involving his right fifth toe and has been treated at [facility]. Patient states having worsening wounds with multiple images and treatment with antibiotics for osteomyelitis involving his 4th and 3rd metatarsal bones. He states asking for someone to take out the bones for the last several weeks but no one would do it. He states over the last 3 weeks he has noticed worsening issues with the wound and previously had fevers, and chills at that time. He currently states he wants this fixed and possibly removed. He was seen yesterday by a vascular surgeon who told him he needed a below knee amputation but he wanted another opinion. He was febrile with a temperature of 102 F, patient was tachycardic but not hypotensive or hypoxic patient did have a white count of 25.8 which is slightly down to 23.1 today creatinine 1.01 cultures obtained patient did have a CT of the chest no acute process and was started on IV antibiotics. He was placed on NPO status last night but states eating this morning around 10am. Review of Systems All systems: negative (what is mentioned in the PMH or HPI) Past Medical History Past Medical History: Atrial Fibrillation, Diabetes Mellitus, Hypertension Additional Past Medical History / Comment(s): Bone infection- right foot. sepsis History of Any Multi-Drug Resistant Organisms: None Reported Past Surgical History: Orthopedic Surgery Additional Past Surgical History / Comment(s): Toe removed right foot Past Anesthesia/Blood Transfusion Reactions: No Reported Reaction Past Psychological History: No Psychological Hx Reported Smoking Status: Current every day smoker Past Alcohol Use History: Occasional Past Drug Use History: None Reported Medications and Allergies Home Medications Medication Instructions Recorded Confirmed Type Dulaglutide [Trulicity] 3 mg SQ TH 08/19/23 08/19/23 History Lisdexamfetamine Dimesylate 30 mg PO DAILY PRN 08/19/23 08/19/23 History [Vyvanse] Allergies Allergy/AdvReac Type Severity Reaction Status Date / Time cefaclor [From [facility]] Allergy Unknown Verified 08/19/23 16:21 Penicillins Allergy Unknown Verified 08/19/23 16:21 Childhood Sulfa (Sulfonamide Allergy Unknown Verified 08/19/23 16:21 Antibiotics) Childhood Surgical - Exam Vital Signs Temp Pulse Resp BP Pulse Ox 100.4 F H 43 L 18 168/88 99 08/19/23 15:36 08/19/23 15:36 08/19/23 15:36 08/19/23 15:36 08/19/23 15:36 - General well developed, well nourished, no distress - Eyes PERRL, normal ocular movement - ENT normal pinna, normal nares - Neck no masses, no bruits - Respiratory normal expansion, normal respiratory effort - Cardiovascular Rhythm: regular - Abdomen Abdomen: soft, non tender - Psychiatric oriented to time, oriented to person, oriented to place, speech is normal palpable DP and PT pulses bilaterally right foot with gangrene involving the dorsal aspect of the foot and purulent drainage from the 4th toe amputation site. severe tenderness to palpation of the dorsal right foot. + malodor from the foot. Results - Labs 08/21/23 08:06 08/21/23 08:06 Abnormal Lab Results - Last 24 Hours (Table) 08/20/23 08/21/23 08/21/23 Range/Units 15:08 00:25 08:06 WBC (3.8-10.6) k/uL RBC (4.30-5.90) m/uL Hgb (13.0-17.5) gm/dL Hct (39.0-53.0) % Neutrophils # (1.3-7.7) k/uL APTT 30.8 H 32.5 H (22.0-30.0) sec Sodium 133 L (137-145) mmol/L Chloride 108 H (98-107) mmol/L Carbon Dioxide 19 L (22-30) mmol/L Glucose 225 H (74-99) mg/dL POC Glucose (mg/dL) (70-110) mg/dL Calcium 7.6 L (8.4-10.2) mg/dL Alkaline Phosphatase 204 H (38-126) U/L Total Protein 5.6 L (6.3-8.2) g/dL Albumin 2.5 L (3.5-5.0) g/dL 08/21/23 08/21/23 08/21/23 Range/Units 08:06 08:06 11:46 WBC 22.2 H (3.8-10.6) k/uL RBC 3.09 L (4.30-5.90) m/uL Hgb 10.0 L (13.0-17.5) gm/dL Hct 30.0 L (39.0-53.0) % Neutrophils # 19.1 H (1.3-7.7) k/uL APTT 35.1 H (22.0-30.0) sec Sodium (137-145) mmol/L Chloride (98-107) mmol/L Carbon Dioxide (22-30) mmol/L Glucose (74-99) mg/dL POC Glucose (mg/dL) 243 H (70-110) mg/dL Calcium (8.4-10.2) mg/dL Alkaline Phosphatase (38-126) U/L Total Protein (6.3-8.2) g/dL Albumin (3.5-5.0) g/dL Microbiology - Last 24 Hours (Table) 08/19/23 17:01 Blood Culture - Preliminary Blood 08/19/23 16:45 Blood Culture - Preliminary Blood Diabetes panel 08/21/23 Range/Units 08:06 Sodium 133 L (137-145) mmol/L Potassium 3.8 (3.5-5.1) mmol/L Chloride 108 H (98-107) mmol/L Carbon Dioxide 19 L (22-30) mmol/L BUN 14 (9-20) mg/dL Creatinine 0.79 (0.66-1.25) mg/dL Glucose 225 H (74-99) mg/dL Calcium 7.6 L (8.4-10.2) mg/dL AST 23 (17-59) U/L ALT 18 (4-49) U/L Alkaline Phosphatase 204 H (38-126) U/L Total Protein 5.6 L (6.3-8.2) g/dL Albumin 2.5 L (3.5-5.0) g/dL Calcium panel 08/21/23 Range/Units 08:06 Calcium 7.6 L (8.4-10.2) mg/dL Albumin 2.5 L (3.5-5.0) g/dL Pituitary panel 08/21/23 Range/Units 08:06 Sodium 133 L (137-145) mmol/L Potassium 3.8 (3.5-5.1) mmol/L Chloride 108 H (98-107) mmol/L Carbon Dioxide 19 L (22-30) mmol/L BUN 14 (9-20) mg/dL Creatinine 0.79 (0.66-1.25) mg/dL Glucose 225 H (74-99) mg/dL Calcium 7.6 L (8.4-10.2) mg/dL Adrenal panel 08/21/23 Range/Units 08:06 Sodium 133 L (137-145) mmol/L Potassium 3.8 (3.5-5.1) mmol/L Chloride 108 H (98-107) mmol/L Carbon Dioxide 19 L (22-30) mmol/L BUN 14 (9-20) mg/dL Creatinine 0.79 (0.66-1.25) mg/dL Glucose 225 H (74-99) mg/dL Calcium 7.6 L (8.4-10.2) mg/dL Total Bilirubin 0.4 (0.2-1.3) mg/dL AST 23 (17-59) U/L ALT 18 (4-49) U/L Alkaline Phosphatase 204 H (38-126) U/L Total Protein 5.6 L (6.3-8.2) g/dL Albumin 2.5 L (3.5-5.0) g/dL Assessment and Plan Assessment: right foot gangrene with deep foot abscess right 5th toe amputation wound Diabetic foot wounds Tobacco abuse History of atrial fibrillation Plan: Reviewed imaging, and labs with the patient. Discussed options for intervention. Due to the severity of infection, gangrene and likely abscess near the ankle he would likely require below knee amputation. He states if we can save the foot he would rather have that procedure but if unable then ok for amputation. We will schedule him for debridement and possible below knee amputation tomorrow per the patients request. Thank you for the consultation.
[2023-08-21] MEDS: IBUPROFEN 400 MG TAB PO PRN (15:05)
[2023-08-21 16:45] LABS: Glucose,Whole Blood 243 mg/dL (70-110)
[2023-08-21] MEDS ORDERED: VANCOMYCIN TROUGH DUE 1 EACH MISC MISCELLANE ONE (17:00)
--- NOTE | 2023-08-21 18:46 | P.PN ---
Subjective Progress Note Date: 08/21/23 History of present illness: This is a 38-year-old male with past medical history of uncontrolled diabetes, osteomyelitis of the right foot, tobacco use and dependence, hemochromatosis, tobacco use and dependence. We have been asked to evaluate the patient for A- fib with RVR. Patient has no previous history of atrial fibrillation and does not follow with a soda clerk. Patient was at [facility] for fever of 103-104 that had been going on for about 2 weeks and also had tachycardia thought to be in atrial fibrillation was started on heparin drip and Cardizem drip. He had an outpatient MRI done on August 18 which did show osteomyelitis of the right foot. Patient was transferred to [facility] for further evaluation and treatment. 08/21/2022 Patient has stayed in normal sinus rhythm over last 24 hours. Denies any chest pain chest pressure or shortness of breath. EKG sinus rhythm with no acute ST changes. Echocardiogram reveals mild LVH with preserved systolic function, mild mitral regurgitation, no aortic valve stenosis or regurgitation. Mild tricuspid regurgitation. CTA of the chest reveals no acute process. WBC 25.8 now 23.1, hemoglobin 9.1, platelet count 319. INR 1. Sodium 134, potassium 3.7, BUN 20 creatinine 1.01. Initial blood sugar was 433. Lactic acid 1.2. Alkaline phosphatase 194 otherwise liver function tests were normal. Home cardiac medications: None Physical examination: Gen: This is a 38-year-old male in no acute distress VS: reviewed blood pressure 116/68, heart rate 90 HEENT: Head is atraumatic, normocephalic. Pupils equal, round. Sclerae is anicteric. NECK: Supple. No JVD. . LUNGS: Clear to auscultation. No wheezes or rhonchi. No intercostal retractions. HEART: Regular rate and rhythm. No murmur. ABDOMEN: Soft No tenderness. EXTREMITIES: No pedal edema. No calf tenderness. NEUROLOGICAL: Patient is awake, alert and oriented x3. Assessment: New onset atrial fibrillation, paroxysmal Uncontrolled diabetes Osteomyelitis of the right foot Active tobacco use and dependence Plan: Continue patient on heparin drip until evaluated by vascular surgery. Patient will be started on Eliquis following any surgical procedures. Discontinue Cardizem drip Start patient on Lopressor 50 mg twice daily Further recommendations to follow based upon clinical course Objective - Vital Signs Vital signs: Vital Signs Temp 98.1 F 08/21/23 15:03 Pulse 111 H 08/21/23 15:03 Resp 18 08/21/23 15:03 BP 179/92 08/21/23 15:03 Pulse Ox 96 08/21/23 15:03 FiO2 Intake & Output 08/20/23 08/21/23 08/21/23 18:59 06:59 18:59 Intake Total 857.309 691.077 336.847 Output Total 600 700 Balance 857.309 91.077 -363.153 Intake: Intake, IV Titration 257.309 151.077 336.847 Amount Heparin Sod,Pork in 0.45% 257.309 151.077 336.847 NaCl 25,000 unit In 0.45 % NaCl 1 250ml.bag @ 10. 498 UNITS/KG/HR 10 mls/hr IV .Q24H [facility] Rx#: [id number] Oral 600 540 Output: Urine 600 700 Other: Voiding Method Toilet Toilet Urinal Urinal # Voids 3 - Labs CBC & Chem 7: 08/21/23 08:06 08/21/23 08:06 Labs: Abnormal Lab Results - Last 24 Hours (Table) 08/21/23 08/21/23 08/21/23 Range/Units 00:25 08:06 08:06 WBC 22.2 H (3.8-10.6) k/uL RBC 3.09 L (4.30-5.90) m/uL Hgb 10.0 L (13.0-17.5) gm/dL Hct 30.0 L (39.0-53.0) % Neutrophils # 19.1 H (1.3-7.7) k/uL APTT 32.5 H (22.0-30.0) sec Sodium 133 L (137-145) mmol/L Chloride 108 H (98-107) mmol/L Carbon Dioxide 19 L (22-30) mmol/L Glucose 225 H (74-99) mg/dL POC Glucose (mg/dL) (70-110) mg/dL Calcium 7.6 L (8.4-10.2) mg/dL Alkaline Phosphatase 204 H (38-126) U/L Total Protein 5.6 L (6.3-8.2) g/dL Albumin 2.5 L (3.5-5.0) g/dL 08/21/23 08/21/23 08/21/23 Range/Units 08:06 11:46 16:15 WBC (3.8-10.6) k/uL RBC (4.30-5.90) m/uL Hgb (13.0-17.5) gm/dL Hct (39.0-53.0) % Neutrophils # (1.3-7.7) k/uL APTT 35.1 H 37.0 H (22.0-30.0) sec Sodium (137-145) mmol/L Chloride (98-107) mmol/L Carbon Dioxide (22-30) mmol/L Glucose (74-99) mg/dL POC Glucose (mg/dL) 243 H (70-110) mg/dL Calcium (8.4-10.2) mg/dL Alkaline Phosphatase (38-126) U/L Total Protein (6.3-8.2) g/dL Albumin (3.5-5.0) g/dL 08/21/23 Range/Units 16:44 WBC (3.8-10.6) k/uL RBC (4.30-5.90) m/uL Hgb (13.0-17.5) gm/dL Hct (39.0-53.0) % Neutrophils # (1.3-7.7) k/uL APTT (22.0-30.0) sec Sodium (137-145) mmol/L Chloride (98-107) mmol/L Carbon Dioxide (22-30) mmol/L Glucose (74-99) mg/dL POC Glucose (mg/dL) 243 H (70-110) mg/dL Calcium (8.4-10.2) mg/dL Alkaline Phosphatase (38-126) U/L Total Protein (6.3-8.2) g/dL Albumin (3.5-5.0) g/dL Microbiology - Last 24 Hours (Table) 08/19/23 17:01 Blood Culture - Preliminary Blood 08/19/23 16:45 Blood Culture - Preliminary Blood
[2023-08-21 19:50] LABS: Glucose,Whole Blood 221 mg/dL (70-110)
--- NOTE | 2023-08-22 00:49 | P.PN ---
Progress Note - Text Progress Note Date: 08/21/23 Hospital course: I'm rounding Dr. Bonifacio Vázquez 08/21/2023: Patient's at the bedside. Significant significant pain in the right foot. No nausea vomiting. Eating well. Sinus rhythm. Patient is refusing his Accu-Cheks. Had to advise him for the same. Total time or does of managing his blood glucose closely. He remains on IV ertapenem and vancomycin. Possibly right below-knee amputation for vascular. Active Medications Albuterol/Ipratropium (Ipratropium-Albuterol 3 Ml Neb) 3 ml INHALATION RT-QID [facility] Last Admin: 08/21/23 21:25 Dose: Not Given Dextrose/Water (Dextrose 50% Syringe 50 Ml) 25 ml IVP PER PROTOCOL PRN; Protocol PRN Reason: Hypoglycemia Dextrose/Water (Dextrose 50% Syringe 50 Ml) 50 ml IVP PER PROTOCOL PRN; Protocol PRN Reason: Hypoglycemia Heparin Sodium (Porcine) (Heparin Sodium 1,000 Un/Ml (10ml Vl)) 0 unit IV PER PROTOCOL PRN; Protocol PRN Reason: Low PTT Last Admin: 08/21/23 17:23 Dose: 2,380 unit Hydromorphone HCl (Hydromorphone 0.5 Mg/0.5 Ml Syringe) 0.5 mg IVP Q3HR PRN PRN Reason: Moderate Pain (Scale 4 to 6) Last Admin: 08/21/23 19:24 Dose: 0.5 mg Heparin Sodium/Sodium Chloride (25,000 unit/ Sodium Chloride) 250 mls @ 10 mls/hr IV .Q24H [facility]; Protocol Last Titration: 08/21/23 23:49 Dose: 26.5 units/kg/hr, 25.242 mls/hr Sodium Chloride (Saline 0.9%) 1,000 mls @ 75 mls/hr IV .[id number] [facility] Last Admin: 08/21/23 07:57 Dose: Not Given Acetaminophen 1,000 mg/ IV (Solution) 100 mls @ 400 mls/hr IVPB Q6HR PRN PRN Reason: Mild Pain or Fever > 100.5 Last Admin: 08/21/23 15:20 Dose: 400 mls/hr Ertapenem 1 gm/ Sodium (Chloride) 50 mls @ 100 mls/hr IVPB DAILY@1200 [facility]; Protocol Last Admin: 08/21/23 11:19 Dose: 100 mls/hr Vancomycin HCl 1,500 mg/ (Sodium Chloride) 500 mls @ 167 mls/hr IVPB Q8H [facility] Last Admin: 08/21/23 19:24 Dose: 167 mls/hr Ibuprofen (Ibuprofen 400 Mg Tab) 400 mg PO Q6HR PRN PRN Reason: Mild Pain or Fever > 100.5 Last Admin: 08/21/23 15:05 Dose: 400 mg Insulin Aspart (Insulin Aspart (Novolog) 100 Unit/Ml Vial) 0 unit SQ ACHS [facility]; Protocol Last Admin: 08/21/23 19:55 Dose: Not Given Metoprolol Tartrate (Metoprolol Tartrate 50 Mg Tab) 50 mg PO BID [facility] Last Admin: 08/21/23 19:53 Dose: 50 mg Naloxone HCl (Naloxone 0.4 Mg/Ml 1 Ml Vial) 0.2 mg IV Q2M PRN PRN Reason: Opioid Reversal Nicotine Polacrilex (Nicotine Gum (Polacrilex) 2 Mg Gum) 2 mg BUCCAL Q2HR PRN PRN Reason: Nicotine Cravings Last Admin: 08/21/23 19:53 Dose: 2 mg Patients Own Medication - Trulicity 3 Mg/0.5 Ml 1 each SQ WEEKLY [facility] Last Admin: 08/20/23 12:16 Dose: 1 each On examination: VITAL SIGNS: 98.1, 111, 18, 147 / 84, 97% room air GENERAL APPEARANCE: Laying in bed, somewhat anxious. HEENT: Normal external appearance of nose and ear. Oral cavity normal EYES: Pupils equal. Conjunctiva normal. NECK: JVD not raised. Mass not palpable. RESPIRATORY: Respiratory effort normal. Lungs clear to auscultation. CARDIOVASCULAR: First and second sounds normal. No edema. ABDOMEN: Soft. Liver and spleen not palpable. No tenderness. No mass palpable. PSYCHIATRY: Alert and oriented x3. Mood and affect anxious EXTREMITY: Wound of the right foot with dressing . INVESTIGATIONS, reviewed in the clinical context: 08/21/2023: White count 22.2 hemoglobin 10 platelets 316 sodium 133 potassium 3.8 creatinine 0.79 Blood culture [August 19]: Negative for now Assessment and plan: -Right foot gangrene with deep foot abscess secondary to diabetes mellitus: Uncontrolled Seen by Dr. Scruggs from vascular. Probably right below-knee amputation -Diabetes mellitus type 2, uncontrolled with infection Patient is reluctant to get his Accu-Cheks done. Also concerned about insulin. Consult with him and his at length. Of importance of getting his blood sugar under better control. Trulicity -Essential hypertension 9 Lopressor 50 mg twice a day -Paroxysmal atrial fibrillation, currently sinus rhythm Patient is off Cardizem drip. Lopressor. Started. Eliquis's been held pending surgery. -Chronic Coumadin dependence, cigarette smoker Nicorette gum -Anemia of chronic disease. Follow H&H -Sepsis from right foot gangrene. On IV antibiotics ,
[2023-08-22] MEDS: SODIUM CHLORIDE 0.9% 1,000 ML IV SCH ×2 (02:09→15:34)
--- NOTE | 2023-08-22 02:15 | P.PN ---
Subjective Progress Note Date: 08/21/23 Principal diagnosis: Reason for follow-up with sepsis and right diabetic foot abscess/osteomyelitis This is a telehealth visit Patient is a 38-year-old male with a past medical history significant for diabetes mellitus did have a right fifth toe diabetic foot infection with osteomyelitis now presenting to the hospital with sepsis and extensive infection of the right foot that apparently has been going on for 3 weeks before he presented to the hospital. On today's evaluation that 08/21/2023 patient did have a low-grade fever 100.7 last night however the patient is afebrile since then, the patient is breathing comfortably on room air patient is hemodynamically stable not requiring pressor support tachycardia has improved no nausea no vomiting no abdominal pain or diarrhea or any worsening pain to the right foot. The patient white count slightly down to 22.2 creatinine is 0.79 Vanco trough low at 10.5 cultures are currently pending Objective - Vital Signs Vital signs: Vital Signs Temp 98.1 F 08/21/23 15:03 Pulse 111 H 08/21/23 15:03 Resp 18 08/21/23 15:03 BP 179/92 08/21/23 15:03 Pulse Ox 96 08/21/23 15:03 FiO2 Intake & Output 08/20/23 08/21/23 08/21/23 18:59 06:59 18:59 Intake Total 857.309 691.077 336.847 Output Total 600 700 Balance 857.309 91.077 -363.153 Intake: Intake, IV Titration 257.309 151.077 336.847 Amount Heparin Sod,Pork in 0.45% 257.309 151.077 336.847 NaCl 25,000 unit In 0.45 % NaCl 1 250ml.bag @ 10. 498 UNITS/KG/HR 10 mls/hr IV .Q24H [facility] Rx#: [id number] Oral 600 540 Output: Urine 600 700 Other: Voiding Method Toilet Toilet Urinal Urinal # Voids 3 - Exam Elderly female lying in bed in no distress Lungs clear to auscultation Abdominal soft no tenderness Right foot with extensive swelling redness and some drainage has been noticed Exam completed with the help of ARTIST MANAGER - Labs CBC & Chem 7: 08/21/23 08:06 08/21/23 08:06 Labs: Abnormal Lab Results - Last 24 Hours (Table) 08/21/23 08/21/23 08/21/23 Range/Units 00:25 08:06 08:06 WBC 22.2 H (3.8-10.6) k/uL RBC 3.09 L (4.30-5.90) m/uL Hgb 10.0 L (13.0-17.5) gm/dL Hct 30.0 L (39.0-53.0) % Neutrophils # 19.1 H (1.3-7.7) k/uL APTT 32.5 H (22.0-30.0) sec Sodium 133 L (137-145) mmol/L Chloride 108 H (98-107) mmol/L Carbon Dioxide 19 L (22-30) mmol/L Glucose 225 H (74-99) mg/dL POC Glucose (mg/dL) (70-110) mg/dL Calcium 7.6 L (8.4-10.2) mg/dL Alkaline Phosphatase 204 H (38-126) U/L Total Protein 5.6 L (6.3-8.2) g/dL Albumin 2.5 L (3.5-5.0) g/dL 08/21/23 08/21/23 08/21/23 Range/Units 08:06 11:46 16:15 WBC (3.8-10.6) k/uL RBC (4.30-5.90) m/uL Hgb (13.0-17.5) gm/dL Hct (39.0-53.0) % Neutrophils # (1.3-7.7) k/uL APTT 35.1 H 37.0 H (22.0-30.0) sec Sodium (137-145) mmol/L Chloride (98-107) mmol/L Carbon Dioxide (22-30) mmol/L Glucose (74-99) mg/dL POC Glucose (mg/dL) 243 H (70-110) mg/dL Calcium (8.4-10.2) mg/dL Alkaline Phosphatase (38-126) U/L Total Protein (6.3-8.2) g/dL Albumin (3.5-5.0) g/dL 08/21/23 Range/Units 16:44 WBC (3.8-10.6) k/uL RBC (4.30-5.90) m/uL Hgb (13.0-17.5) gm/dL Hct (39.0-53.0) % Neutrophils # (1.3-7.7) k/uL APTT (22.0-30.0) sec Sodium (137-145) mmol/L Chloride (98-107) mmol/L Carbon Dioxide (22-30) mmol/L Glucose (74-99) mg/dL POC Glucose (mg/dL) 243 H (70-110) mg/dL Calcium (8.4-10.2) mg/dL Alkaline Phosphatase (38-126) U/L Total Protein (6.3-8.2) g/dL Albumin (3.5-5.0) g/dL Microbiology - Last 24 Hours (Table) 08/19/23 17:01 Blood Culture - Preliminary Blood 08/19/23 16:45 Blood Culture - Preliminary Blood Assessment and Plan (1) Diabetic infection of right foot Current Visit: Yes Status: Acute Code(s): E11.628 - TYPE 2 DIABETES MELLITUS WITH OTHER SKIN COMPLICATIONS; L08.9 - LOCAL INFECTION OF THE SKIN AND SUBCUTANEOUS TISSUE, UNSP SNOMED Code(s): 29079846 (2) Foot abscess, right Current Visit: Yes Status: Acute Code(s): L02.611 - CUTANEOUS ABSCESS OF RIGHT FOOT SNOMED Code(s): 23226131686093141 (3) Foot osteomyelitis, right Current Visit: Yes Status: Acute Code(s): M86.9 - OSTEOMYELITIS, UNSPECIFIED SNOMED Code(s): 2595713032425321 (4) Allergy to multiple antibiotics Current Visit: Yes Status: Acute Code(s): Z88.1 - ALLERGY STATUS TO OTHER ANTIBIOTIC AGENTS SNOMED Code(s): 381495201 (5) Sepsis Current Visit: Yes Status: Acute Code(s): A41.9 - SEPSIS, UNSPECIFIED ORGANISM SNOMED Code(s): 25710789 Plan: 1patient presented to hospital with sepsis in this patient who did have fever tachycardia elevated white count patient did have extensive right diabetic foot infection concerning for underlying abscess and osteomyelitis, patient will need extensive surgery for drainage of this abscess at which time culture should be sent both aerobic and anaerobic 2-patient with multiple antibiotic ALLERGIES that would limit the number of antibiotic safe to use 3patient has been evaluated by 2 different vascular surgeon and they are recommending right below the knee amputation because of his extensive infection and the patient seem to have agreed to wait I will continue to cover the patient with the vancomycin and Invanz while waiting for condition to stabilize and culture to finalize Multiple questions Answered in Layman Term Dictation was produced using [employer] dictation software. please excuse any grammatical, word or spelling errors. Time with Patient: Less than 30
[2023-08-22] MEDS: VANCOMYCIN 1,500 MG in SODIUM CHLORIDE 0.9% 500 ML 500 ML IVPB SCH ×2 (02:35→15:33)
[2023-08-22] MEDS: INSULIN ASPART (NovoLOG) 100 UNIT/ML VIAL SQ SCH ×4 (04:54→19:57)
[2023-08-22 06:06] LABS: Glucose,Whole Blood 166 mg/dL (70-110)
[2023-08-22] MEDS: HYDROmorphone 0.5 MG/0.5 ML SYRINGE IVP PRN ×2 (06:08→15:42)
[2023-08-22] MEDS: IPRATROPIUM-ALBUTEROL 3 ML NEB INHALATION SCH ×4 (08:19→21:06)
[2023-08-22] MEDS: METOPROLOL TARTRATE 50 MG TAB PO SCH ×2 (08:53→20:51)
[2023-08-22] MEDS: NICOTINE GUM (POLACRILEX) 2 MG GUM BUCCAL PRN ×2 (08:56→18:03)
[2023-08-22 10:18] LABS: African American GFR (CKD) >90 (>60 ml/min/1.73 sqM); Non-African American GFR(CKD) >90 (>60 ml/min/1.73 sqM)
[2023-08-22 10:54] LABS: Glucose,Whole Blood 149 mg/dL (70-110)
[2023-08-22] MEDS ORDERED: MIDAZOLAM 2 MG/2 ML VIAL IVP ONE (11:49)
[2023-08-22] MEDS ORDERED: IV FLUID CONTINUATION 1,000 ML IV ONE (12:10)
[2023-08-22] MEDS ORDERED: fentaNYL (PF) 50 MCG/ML 2 ML AMP ONE (12:11)
[2023-08-22] MEDS ORDERED: SUCCINYLCHOLINE CHLORIDE 200 MG/10 ML VIAL IV ONE (12:11)
[2023-08-22] MEDS ORDERED: KETOROLAC 15 MG/ML 1 ML VIAL ONE (12:11)
[2023-08-22] MEDS ORDERED: PROPOFOL 10 MG/ML 20 ML VIAL IV ONE (12:11)
[2023-08-22] MEDS ORDERED: MIDAZOLAM 2 MG/2 ML VIAL ONE (12:11)
[2023-08-22] MEDS ORDERED: HYDROmorphone (PF) 1 MG/ML ONE (12:11)
[2023-08-22] MEDS ORDERED: LACTATED RINGERS 1,000 ML IV ONE ×3 (12:43→14:03)
--- NOTE | 2023-08-22 14:04 | P.OP ---
Date of Procedure: 08/22/23 Preoperative Diagnosis: Nonhealing/infected wound right foot not felt amenable to further therapy. Postoperative Diagnosis: Same. Procedure(s) Performed: Right below the knee amputation. Anesthesia: GETA Surgeon: Yoandy Pham Estimated Blood Loss (ml): 200 Pathology: other (Right [id number] amputation.) Condition: stable Disposition: no change Indications for Procedure: Patient is a 38-year-old male who has an infected wound of the right foot. He has been dealing with this for the past year and a half undergoing IV antibiotic therapy as well as local wound care. Unfortunately this has failed to heal and is not felt amenable to further debrided etc. We did discuss possible additional debridment with the patient versus [id number] amputation. Patient wished to proceed with below the knee amputation. The procedure, risk and benefits were discussed. All questions answered to patient's satisfaction. Description of Procedure: Patient brought the upper and placed in the supine position administered general inhalational anesthesia delivered by the department of anesthesiology. Patient's right lower extremity was sterilely prepped and draped in usual manner. Approximately 10 cm below the tibial tuberosity skin incision was made and carried both medially and laterally perpendicular to the bone. The incision was deepened through the subcu change tissues. Muscle of the anterior compartment was divided with electrocautery. The muscle was taken down from the tibia both medially and laterally. The muscles in the lateral compartment were divided with electrocautery as were the muscles of the superficial posterior compartment. Periosteal elevator was utilized to elevate periosteum off the tibia. Utilizing power saw the tibia was transected followed by transection of the fibula. The incision was taken inferiorly both medially and laterally and connected posteriorly. Electrocautery was utilized to divide the soft tissues. The neurovascular bundle was identified and doubly clamped and divided. Suture ligature of 3-0 Vicryl was utilized to control arterial and venous vessels. The nerve was identified and transected as high as possible and ligature of 3-0 Vicryl was placed about the proximal transected nerve. Utilizing amputation knife the amputation was completed and the specimen sent to the department of pathology. Bleeding points were controlled with 3-0 Vicryl suture. The anterior surface of the tibia was beveled with the power saw. The posterior flap was brought anteriorly and closed with 2-0 Vicryl followed by skin carole. Adaptic, 4 x 4's/fluffs/Curlex and Miguel Angel wrap were placed followed by knee immobilizer. Patient tolerated the procedure well. He was taken the recovery area in satisfactory and stable condition.
[2023-08-22] MEDS: MEPERIDINE 50 MG/ML SYRINGE IVP ONE ×2 (14:17→14:28)
[2023-08-22 14:22] LABS: Glucose,Whole Blood 120 mg/dL (70-110)
--- NOTE | 2023-08-22 14:51 | P.PN ---
Subjective Progress Note Date: 08/22/23 History of present illness: This is a 38-year-old male with past medical history of uncontrolled diabetes, osteomyelitis of the right foot, tobacco use and dependence, hemochromatosis, tobacco use and dependence. We have been asked to evaluate the patient for A- fib with RVR. Patient has no previous history of atrial fibrillation and does not follow with a cocktail server. Patient was at [facility] for fever of 103-104 that had been going on for about 2 weeks and also had tachycardia thought to be in atrial fibrillation was started on heparin drip and Cardizem drip. He had an outpatient MRI done on August 18 which did show osteomyelitis of the right foot. Patient was transferred to [facility] for further evaluation and treatment. 08/21/2022 Patient has stayed in normal sinus rhythm over last 24 hours. Denies any chest pain chest pressure or shortness of breath. 08/22/2022 Patient underwent below-knee amputation today. He tolerated the procedure well. Telemetry does not show any further atrial fibrillations at this time. EKG sinus rhythm with no acute ST changes. Echocardiogram reveals mild LVH with preserved systolic function, mild mitral regurgitation, no aortic valve stenosis or regurgitation. Mild tricuspid regurgitation. CTA of the chest reveals no acute process. WBC 25.8 now 23.1, hemoglobin 9.1, platelet count 319. INR 1. Sodium 134, potassium 3.7, BUN 20 creatinine 1.01. Initial blood sugar was 433. Lactic acid 1.2. Alkaline phosphatase 194 otherwise liver function tests were normal. Home cardiac medications: None Physical examination: Gen: This is a 38-year-old male in no acute distress VS: reviewed blood pressure 116/68, heart rate 90 HEENT: Head is atraumatic, normocephalic. Pupils equal, round. Sclerae is anicteric. NECK: Supple. No JVD. . LUNGS: Clear to auscultation. No wheezes or rhonchi. No intercostal retractions. HEART: Regular rate and rhythm. No murmur. ABDOMEN: Soft No tenderness. EXTREMITIES: No pedal edema. No calf tenderness. NEUROLOGICAL: Patient is awake, alert and oriented x3. Assessment: New onset atrial fibrillation, paroxysmal. Currently in sinus rhythm Uncontrolled diabetes Osteomyelitis of the right foot s/ BKA right 08/22/23 Active tobacco use and dependence Suspect peripheral artery disease EF 55%, mild LVH Plan: Discontinue heparin drip once okay by surgery team, start him on Eliquis 5 mg twice a day possibly from tomorrow morning. Discontinue Cardizem drip Lopressor 50 mg twice daily Patient needs outpatient CAD and PAD evaluation Objective - Vital Signs Vital signs: Vital Signs Temp 97.2 F L 08/22/23 14:03 Pulse 101 H 08/22/23 14:33 Resp 16 08/22/23 14:33 BP 163/88 08/22/23 14:33 Pulse Ox 99 08/22/23 14:33 FiO2 Intake & Output 08/21/23 08/22/23 08/22/23 18:59 06:59 18:59 Intake Total 336.847 156.343 4690.778 Output Total 558 267 2916 Balance -363.153 -242.982 -49.222 Intake: IV 1300 Intake, IV Titration 336.847 167.018 200.778 Amount Heparin Sod,Pork in 0.45% 336.847 167.018 200.778 NaCl 25,000 unit In 0.45 % NaCl 1 250ml.bag @ 10. 498 UNITS/KG/HR 10 mls/hr IV .Q24H [facility] Rx#: [id number] Oral 540 Output: Urine 698 121 4846 Estimated Blood Loss 150 Other: Voiding Method Toilet Urinal - Labs CBC & Chem 7: 08/21/23 08:06 08/22/23 08:20 Labs: Abnormal Lab Results - Last 24 Hours (Table) 08/20/23 08/21/23 08/21/23 Range/Units 07:36 16:15 16:44 APTT 37.0 H (22.0-30.0) sec POC Glucose (mg/dL) 243 H (70-110) mg/dL Hemoglobin A1c 7.0 H (<=6.0) % 08/21/23 08/21/23 08/22/23 Range/Units 19:48 22:54 06:04 APTT 49.1 H (22.0-30.0) sec POC Glucose (mg/dL) 221 H 166 H (70-110) mg/dL Hemoglobin A1c (<=6.0) % 08/22/23 08/22/23 Range/Units 10:51 14:19 APTT (22.0-30.0) sec POC Glucose (mg/dL) 149 H 120 H (70-110) mg/dL Hemoglobin A1c (<=6.0) % Microbiology - Last 24 Hours (Table) 08/19/23 17:01 Blood Culture - Preliminary Blood 08/19/23 16:45 Blood Culture - Preliminary Blood
[2023-08-22] MEDS: ERTAPENEM 1 GM in SODIUM CHLORIDE 0.9% 50 ML IVPB SCH (15:33)
[2023-08-22 16:19] LABS: Glucose,Whole Blood 110 mg/dL (70-110)
[2023-08-22 19:52] LABS: Glucose,Whole Blood 182 mg/dL (70-110)
[2023-08-22] MEDS: oxyCODONE-APAP 7.5-325MG 1 EACH TAB PO PRN (20:49)
[2023-08-22 21:32] VITALS: RESP 18
--- NOTE | 2023-08-22 23:08 | P.PN ---
Progress Note - Text Progress Note Date: 08/22/23 Hospital course: I'm rounding Dr. Bonifacio Vázquez 08/21/2023: Patient's at the bedside. Significant significant pain in the right foot. No nausea vomiting. Eating well. Sinus rhythm. Patient is refusing his Accu-Cheks. Had to advise him for the same. Total time or does of managing his blood glucose closely. He remains on IV ertapenem and vancomycin. Possibly right below-knee amputation for vascular. 08/22/2023: Patient underwent right below-knee amputation by Dr. Pham. On IV antibiotics. Brace in place. Discussed with the patient of importance of insulin, smoking cessation. Questions answered. Tolerating diet. Patient thinks his vision is getting affected by beta blockers. I did explain to him it could be also from his high Accu-Cheks. Patient insisted for Lopressor to be Discontinued. For blood pressure start lisinopril hydrochlorothiazide.. Active Medications Albuterol/Ipratropium (Ipratropium-Albuterol 3 Ml Neb) 3 ml INHALATION RT-QID [facility] Last Admin: 08/22/23 21:06 Dose: Not Given Dextrose/Water (Dextrose 50% Syringe 50 Ml) 25 ml IVP PER PROTOCOL PRN; Protocol PRN Reason: Hypoglycemia Dextrose/Water (Dextrose 50% Syringe 50 Ml) 50 ml IVP PER PROTOCOL PRN; Protocol PRN Reason: Hypoglycemia Hydromorphone HCl (Hydromorphone 0.5 Mg/0.5 Ml Syringe) 0.5 mg IVP Q3HR PRN PRN Reason: Moderate Pain (Scale 4 to 6) Last Admin: 08/22/23 15:42 Dose: 0.5 mg Sodium Chloride (Saline 0.9%) 1,000 mls @ 75 mls/hr IV .[id number] [facility] Last Admin: 08/22/23 15:34 Dose: Not Given Acetaminophen 1,000 mg/ IV (Solution) 100 mls @ 400 mls/hr IVPB Q6HR PRN PRN Reason: Mild Pain or Fever > 100.5 Last Admin: 08/21/23 15:20 Dose: 400 mls/hr Ertapenem 1 gm/ Sodium (Chloride) 50 mls @ 100 mls/hr IVPB DAILY@1200 CARMENZA; Protocol Last Admin: 08/22/23 15:33 Dose: 100 mls/hr Vancomycin HCl 1,500 mg/ (Sodium Chloride) 500 mls @ 167 mls/hr IVPB Q8H CARMEN[facility] Ibuprofen (Ibuprofen 400 Mg Tab) 400 mg PO Q6HR PRN PRN Reason: Mild Pain or Fever > 100.5 Last Admin: 08/21/23 15:05 Dose: 400 mg Insulin Aspart (Insulin Aspart (Novolog) 100 Unit/Ml Vial) 0 unit SQ ACHS [facility]; Protocol Last Admin: 08/22/23 19:57 Dose: Not Given Metoprolol Tartrate (Metoprolol Tartrate 50 Mg Tab) 50 mg PO BID [facility] Last Admin: 08/22/23 20:51 Dose: 50 mg Naloxone HCl (Naloxone 0.4 Mg/Ml 1 Ml Vial) 0.2 mg IV Q2M PRN PRN Reason: Opioid Reversal Nicotine Polacrilex (Nicotine Gum (Polacrilex) 2 Mg Gum) 2 mg BUCCAL Q2HR PRN PRN Reason: Nicotine Cravings Last Admin: 08/22/23 18:03 Dose: 2 mg Patients Own Medication - Trulicity 3 Mg/0.5 Ml 1 each SQ WEEKLY [facility] Last Admin: 08/20/23 12:16 Dose: 1 each Oxycodone/Acetaminophen (Oxycodone-Apap 7.5-325mg 1 Each Tab) 1 each PO Q4HR PRN PRN Reason: Pain Last Admin: 08/22/23 20:49 Dose: 1 each On examination: VITAL SIGNS: Febrile, 98, 16, 151/87, 95% room air GENERAL APPEARANCE: Laying in bed, not in distress. HEENT: Normal external appearance of nose and ear. Oral cavity normal EYES: Pupils equal. Conjunctiva normal. NECK: JVD not raised. Mass not palpable. RESPIRATORY: Respiratory effort normal. Lungs clear to auscultation. CARDIOVASCULAR: First and second sounds normal. No edema. ABDOMEN: Soft. Liver and spleen not palpable. No tenderness. No mass palpable. PSYCHIATRY: Alert and oriented x3. Mood and affect anxious EXTREMITY: Below-knee amputation with a leg brace . INVESTIGATIONS, reviewed in the clinical context: 08/21/2023: White count 22.2 hemoglobin 10 platelets 316 sodium 133 potassium 3.8 creatinine 0.79 Blood culture [August 19]: Negative for now Assessment and plan: -Right foot gangrene with deep foot abscess secondary to diabetes mellitus: Uncontrolled Seen by Dr. Scruggs from vascular. Right below-knee amputation on August [address] Pham -Diabetes mellitus type 2, uncontrolled with infection Patient is reluctant to get his Accu-Cheks done. Also concerned about insulin. Discussed with him and his at length. Of importance of getting his blood sugar under better control. Trulicity -Essential hypertension : Uncontrolled Start Lisinopril hydrochlorothiazide 20/12.5 twice a day. Patient wants Lopressor to be discontinued -Paroxysmal atrial fibrillation, currently sinus rhythm Patient is off Cardizem drip. Lopressor to be discontinued as patient does not want the same.. Start Cardizem 30 mg 3 times a day. Eliquis's be resumed when okay with surgery -Chronic Coumadin dependence, cigarette smoker Nicorette gum -Anemia of chronic disease. Follow H&H -Sepsis from right foot gangrene. On IV antibiotics ,
[2023-08-23] MEDS: VANCOMYCIN 1,500 MG in SODIUM CHLORIDE 0.9% 500 ML 500 ML IVPB SCH ×4 (00:32→23:28)
[2023-08-23] MEDS: HYDROmorphone 0.5 MG/0.5 ML SYRINGE IVP PRN ×3 (00:32→07:59)
[2023-08-23] MEDS: SODIUM CHLORIDE 0.9% 1,000 ML IV SCH ×2 (00:32→13:34)
[2023-08-23 05:49] LABS: Glucose,Whole Blood 190 mg/dL (70-110)
[2023-08-23] MEDS: INSULIN ASPART (NovoLOG) 100 UNIT/ML VIAL SQ SCH ×4 (05:55→19:52)
[2023-08-23 08:30] LABS: Basophils # (A) 0.1 k/uL (0-0.2); Basophils % (A) 1 %; Eosinophils # (A) 0.3 k/uL (0-0.7); Eosinophils % (A) 3 %; HCT 30.8 % (39.0-53.0); HGB 10.2 gm/dL (13.0-17.5); Lymphocytes # (A) 1.6 k/uL (1.0-4.8); Lymphocytes % (A) 15 %; MCH 32.1 pg (25.0-35.0); MCHC 33.1 g/dL (31.0-37.0); MCV 96.9 fL (80.0-100.0); Mean Platelet Volume 7.8; Monocytes # (A) 0.7 k/uL (0-1.0); Monocytes % (A) 7 %; Neutrophils % (A) 70 %; Platelet Count 357 k/uL (150-450); RBC 3.18 m/uL (4.30-5.90); RDW 12.5 % (11.5-15.5); WBC 10.1 k/uL (3.8-10.6)
[2023-08-23] MEDS: IPRATROPIUM-ALBUTEROL 3 ML NEB INHALATION SCH ×4 (08:34→21:13)
[2023-08-23] MEDS ORDERED: LISINOPRIL-HCTZ 20-25 MG 1 EACH TAB PO SCH (09:00)
[2023-08-23] MEDS ORDERED: DILTIAZEM ORAL 30 MG TAB PO SCH (09:00)
[2023-08-23] MEDS ORDERED: LISINOPRIL-HCTZ 10-12.5 MG 1 EACH TAB PO SCH (09:00)
[2023-08-23] MEDS ORDERED: LISINOPRIL-HCTZ 20-12.5 MG 1 EACH TAB PO SCH (09:00)
[2023-08-23 09:01] LABS: African American GFR (CKD) >90 (>60 ml/min/1.73 sqM); Anion Gap 4 mmol/L; Blood Urea Nitrogen 15 mg/dL (9-20); Calcium 7.5 mg/dL (8.4-10.2); Carbon Dioxide 23 mmol/L (22-30); Chloride 109 mmol/L (98-107); Glucose 210 mg/dL (74-99); Non-African American GFR(CKD) >90 (>60 ml/min/1.73 sqM); Potassium 4.7 mmol/L (3.5-5.1); Sodium 136 mmol/L (137-145)
[2023-08-23] MEDS ORDERED: VANCOMYCIN TROUGH DUE 1 EACH MISC MISCELLANE ONE ×2 (10:00→15:00)
[2023-08-23] MEDS: DILTIAZEM CD 120 MG CAP.ER.24H PO SCH (10:13)
[2023-08-23] MEDS: oxyCODONE-APAP 7.5-325MG 1 EACH TAB PO PRN ×3 (10:13→18:37)
[2023-08-23] MEDS: APIXABAN 5 MG TAB PO SCH ×2 (10:13→20:10)
[2023-08-23] MEDS: ERTAPENEM 1 GM in SODIUM CHLORIDE 0.9% 50 ML IVPB SCH (11:27)
[2023-08-23] MEDS: HYDROmorphone 1 MG/ML 1 ML SYRINGE IVP PRN ×4 (11:27→23:28)
[2023-08-23] MEDS: LOSARTAN-HCTZ 50-12.5 MG 1 EACH TAB PO SCH (11:29)
[2023-08-23] MEDS: NICOTINE GUM (POLACRILEX) 2 MG GUM BUCCAL PRN ×4 (11:33→20:09)
--- NOTE | 2023-08-23 12:37 | P.PN ---
Subjective Progress Note Date: 08/23/23 Principal diagnosis: Non-healing/infected wound right foot Patient seen and examined today as a follow-up. He is postop day #2 for right below the knee amputation. States he has been in quite a bit of pain, especially this morning as he had his dressing change. Lennie came in this morning did a dressing change and added a stump behavioral health associate and rigid dressing. He has his knee immobilizer in place. Objective - Vital Signs Vital signs: Vital Signs Temp 98.1 F 08/23/23 07:32 Pulse 103 H 08/23/23 07:38 Resp 18 08/23/23 07:32 BP 174/85 08/23/23 07:32 Pulse Ox 98 08/23/23 07:32 FiO2 Intake & Output 08/22/23 08/23/23 08/23/23 18:59 06:59 18:59 Intake Total 1700.778 360 Output Total 1550 1500 Balance 150.778 -1500 360 Intake: IV 1500 Intake, IV Titration 200.778 Amount Heparin Sod,Pork in 0.45% 200.778 NaCl 25,000 unit In 0.45 % NaCl 1 250ml.bag @ 10. 498 UNITS/KG/HR 10 mls/hr IV .Q24H [facility] Rx#: [id number] Oral 360 Output: Urine 1400 1500 Estimated Blood Loss 150 Other: Voiding Method Toilet Urinal - Exam General appearance: The patient is alert, oriented, appears in no acute distress. HET: Head is normocephalic and atraumatic. Neck: Supple. Heart: Regular. Lungs: Equal expansion, normal respiratory effort. Abdomen: Soft, nontender, nondistended. Extremities: Normal skin color and turgor. Incision well approximated with carole, minimal drainage. Stump behavioral health associate and rigid dressing in place. Knee immobilizer in place. Neurological: No focal deficits. Strength and sensation are grossly intact. - Labs CBC & Chem 7: 08/23/23 07:05 08/23/23 07:05 Labs: Abnormal Lab Results - Last 24 Hours (Table) 08/22/23 08/22/23 08/23/23 Range/Units 14:19 19:50 05:48 RBC (4.30-5.90) m/uL Hgb (13.0-17.5) gm/dL Hct (39.0-53.0) % Sodium (137-145) mmol/L Chloride (98-107) mmol/L Glucose (74-99) mg/dL POC Glucose (mg/dL) 120 H 182 H 190 H (70-110) mg/dL Calcium (8.4-10.2) mg/dL 08/23/23 08/23/23 Range/Units 07:05 07:05 RBC 3.18 L (4.30-5.90) m/uL Hgb 10.2 L (13.0-17.5) gm/dL Hct 30.8 L (39.0-53.0) % Sodium 136 L (137-145) mmol/L Chloride 109 H (98-107) mmol/L Glucose 210 H (74-99) mg/dL POC Glucose (mg/dL) (70-110) mg/dL Calcium 7.5 L (8.4-10.2) mg/dL Microbiology - Last 24 Hours (Table) 08/19/23 17:01 Blood Culture - Preliminary Blood 08/19/23 16:45 Blood Culture - Preliminary Blood Assessment and Plan Assessment: 1. Postop day #1 right below the knee amputation 2. Right foot gangrene with deep foot abscess. Nonhealing/infected wound right foot not felt amenable to further therapy. 3. Diabetic foot wounds 4. Tobacco abuse 5. History of atrial fibrillation Plan: 1. Patient fitted for stump sjrinker and rigid dressing by Lennie today. Keep stump behavioral health associate and rigid dressing in place 2. Keep knee immobilizer in place 3. Increase Dilaudid to 1 mg every 3 hours, alternate with oral pain medication 4. Consult to PT and OT 5. Anticipate discharge home in the next 24 hours
--- NOTE | 2023-08-23 12:48 | P.PN ---
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 Patient examined this morning at the bedside. Patient's spouse is present. Patient currently denies chest pain or pressure. He denies shortness of breath. Telemetry reveals sinus mechanism. Blood pressure is elevated with a systolic in the 150s to 170s. PHYSICAL EXAM: VITAL SIGNS: Reviewed. GENERAL: Well-developed in no acute distress. NECK: Supple. No JVD or thyromegaly LUNGS: Respirations even and unlabored. Lungs essentially clear to auscultation bilaterally. HEART: Regular rate and rhythm. S1 and S2 heard. EXTREMITIES: Normal range of motion. No clubbing or cyanosis. Right BKA noted. ASSESSMENT: Osteomyelitis of right foot, status post BKA New-onset paroxysmal atrial fibrillation, currently maintaining sinus mechanism Hypertension, uncontrolled Diabetes, hemoglobin A1c 7% Peripheral arterial disease Nicotine dependence Intolerance to multiple antihypertensive medications, per patient PLAN: Begin Eliquis 5 mg twice a day Add atorvastatin 40 mg at night Change Cardizem TID to Cardizem CD 120 mg daily Continue telemetry monitoring Patient currently on lisinopril which he states he cannot tolerate due to a rash in the summertime Will begin losartanhydrochlorothiazide 100 mg25 mg daily Continue to monitor blood pressure Smoking cessation recommended Further recommendations pending patient's course Nurse practitioner note has been reviewed by physician. Signing provider agrees with the documented findings, assessment, and plan of care. Objective - Vital Signs Vital signs: Vital Signs Temp 98.1 F 08/23/23 07:32 Pulse 103 H 08/23/23 07:38 Resp 18 08/23/23 07:32 BP 174/85 08/23/23 07:32 Pulse Ox 98 08/23/23 07:32 FiO2 Intake & Output 08/22/23 08/23/23 08/23/23 18:59 06:59 18:59 Intake Total 1700.778 360 Output Total 1550 1500 Balance 150.778 -1500 360 Intake: IV 1500 Intake, IV Titration 200.778 Amount Heparin Sod,Pork in 0.45% 200.778 NaCl 25,000 unit In 0.45 % NaCl 1 250ml.bag @ 10. 498 UNITS/KG/HR 10 mls/hr IV .Q24H [facility] Rx#: [id number] Oral 360 Output: Urine 1400 1500 Estimated Blood Loss 150 Other: Voiding Method Toilet Urinal - Labs CBC & Chem 7: 08/23/23 07:05 08/23/23 07:05 Labs: Abnormal Lab Results - Last 24 Hours (Table) 08/22/23 08/22/23 08/23/23 Range/Units 14:19 19:50 05:48 RBC (4.30-5.90) m/uL Hgb (13.0-17.5) gm/dL Hct (39.0-53.0) % Sodium (137-145) mmol/L Chloride (98-107) mmol/L Glucose (74-99) mg/dL POC Glucose (mg/dL) 120 H 182 H 190 H (70-110) mg/dL Calcium (8.4-10.2) mg/dL 08/23/23 08/23/23 Range/Units 07:05 07:05 RBC 3.18 L (4.30-5.90) m/uL Hgb 10.2 L (13.0-17.5) gm/dL Hct 30.8 L (39.0-53.0) % Sodium 136 L (137-145) mmol/L Chloride 109 H (98-107) mmol/L Glucose 210 H (74-99) mg/dL POC Glucose (mg/dL) (70-110) mg/dL Calcium 7.5 L (8.4-10.2) mg/dL Microbiology - Last 24 Hours (Table) 08/19/23 17:01 Blood Culture - Preliminary Blood 08/19/23 16:45 Blood Culture - Preliminary Blood
[2023-08-23] MEDS ORDERED: ATORVASTATIN 40 MG TAB PO SCH (21:00)
--- NOTE | 2023-08-23 22:26 | P.PN ---
Subjective Progress Note Date: 08/23/23 Principal diagnosis: Reason for follow-up with sepsis and right diabetic foot abscess/osteomyelitis This is a telehealth visit Patient is a 38-year-old male with a past medical history significant for diabetes mellitus did have a right fifth toe diabetic foot infection with osteomyelitis now presenting to the hospital with sepsis and extensive infection of the right foot that apparently has been going on for 3 weeks before he presented to the hospital. Patient is status post right below the knee amputation completed on 08/22/2023 On today's evaluation that is 08/23/2023 the patient remains to be afebrile, patient is breathing comfortably on room air without need for supplemental oxygen, the patient denies having any chest pain no significant cough or sputum production no nausea vomiting no abdominal pain and no diarrhea. Patient white count normalized to 10.1, creatinine 0.93 blood culture has been negative Objective - Vital Signs Vital signs: Vital Signs Temp 98.1 F 08/23/23 07:32 Pulse 103 H 08/23/23 07:38 Resp 18 08/23/23 07:32 BP 174/85 08/23/23 07:32 Pulse Ox 98 08/23/23 07:32 FiO2 Intake & Output 08/22/23 08/23/23 08/23/23 18:59 06:59 18:59 Intake Total 1700.778 360 Output Total 1550 1500 Balance 150.778 -1500 360 Intake: IV 1500 Intake, IV Titration 200.778 Amount Heparin Sod,Pork in 0.45% 200.778 NaCl 25,000 unit In 0.45 % NaCl 1 250ml.bag @ 10. 498 UNITS/KG/HR 10 mls/hr IV .Q24H [facility] Rx#: [id number] Oral 360 Output: Urine 1400 1500 Estimated Blood Loss 150 Other: Voiding Method Toilet Urinal - Labs CBC & Chem 7: 08/23/23 07:05 08/23/23 07:05 Labs: Abnormal Lab Results - Last 24 Hours (Table) 08/20/23 08/22/23 08/22/23 Range/Units 07:36 10:51 14:19 RBC (4.30-5.90) m/uL Hgb (13.0-17.5) gm/dL Hct (39.0-53.0) % Sodium (137-145) mmol/L Chloride (98-107) mmol/L Glucose (74-99) mg/dL POC Glucose (mg/dL) 149 H 120 H (70-110) mg/dL Hemoglobin A1c 7.0 H (<=6.0) % Calcium (8.4-10.2) mg/dL 08/22/23 08/23/23 08/23/23 Range/Units 19:50 05:48 07:05 RBC (4.30-5.90) m/uL Hgb (13.0-17.5) gm/dL Hct (39.0-53.0) % Sodium 136 L (137-145) mmol/L Chloride 109 H (98-107) mmol/L Glucose 210 H (74-99) mg/dL POC Glucose (mg/dL) 182 H 190 H (70-110) mg/dL Hemoglobin A1c (<=6.0) % Calcium 7.5 L (8.4-10.2) mg/dL 08/23/23 Range/Units 07:05 RBC 3.18 L (4.30-5.90) m/uL Hgb 10.2 L (13.0-17.5) gm/dL Hct 30.8 L (39.0-53.0) % Sodium (137-145) mmol/L Chloride (98-107) mmol/L Glucose (74-99) mg/dL POC Glucose (mg/dL) (70-110) mg/dL Hemoglobin A1c (<=6.0) % Calcium (8.4-10.2) mg/dL Microbiology - Last 24 Hours (Table) 08/19/23 17:01 Blood Culture - Preliminary Blood 08/19/23 16:45 Blood Culture - Preliminary Blood Assessment and Plan (1) Diabetic infection of right foot Current Visit: Yes Status: Acute Code(s): E11.628 - TYPE 2 DIABETES MELLITUS WITH OTHER SKIN COMPLICATIONS; L08.9 - LOCAL INFECTION OF THE SKIN AND SUBCUTANEOUS TISSUE, UNSP SNOMED Code(s): 06410668 (2) Foot abscess, right Current Visit: Yes Status: Acute Code(s): L02.611 - CUTANEOUS ABSCESS OF RIGHT FOOT SNOMED Code(s): 30720039885796146 (3) Foot osteomyelitis, right Current Visit: Yes Status: Acute Code(s): M86.9 - OSTEOMYELITIS, UNSPECIFIED SNOMED Code(s): 4316931436074921 (4) Allergy to multiple antibiotics Current Visit: Yes Status: Acute Code(s): Z88.1 - ALLERGY STATUS TO OTHER ANTIBIOTIC AGENTS SNOMED Code(s): 904897382 (5) Sepsis Current Visit: Yes Status: Acute Code(s): A41.9 - SEPSIS, UNSPECIFIED ORGANISM SNOMED Code(s): 52856073 Plan: 1patient presented to hospital with sepsis in this patient who did have fever tachycardia elevated white count patient did have extensive right diabetic foot infection concerning for underlying abscess and osteomyelitis, patient will need extensive surgery for drainage of this abscess at which time culture should be sent both aerobic and anaerobic 2-patient with multiple antibiotic ALLERGIES that would limit the number of antibiotic safe to use 3patient is status post right below the knee amputation with infected part removed patient was not bacteremic fever has resolved and white count is normalized I will continue the patient on vancomycin and Invanz while inpatient however no plan for any IV antibiotic therapy on discharge Dictation was produced using [employer] dictation software. please excuse any grammatical, word or spelling errors. Time with Patient: Less than 30
--- NOTE | 2023-08-23 22:46 | PN ---
PROGRESS NOTE SUBJECTIVE: This is a 38-year-old white male. The patient's right foot , the patient getting affected by beta-blockers and high sugars. Wants his Lopressor discontinued for blood pressure. Start lisinopril with a water pill. Continue on breathing treatments. Ertapenem and Vancomycin for infection, metoprolol tartrate, nicotine addiction. White count 22, hemoglobin is 10, platelets 316. Sodium 133, potassium 3.8. Blood cultures are negative. foot gangrene, deep foot abscess secondary to diabetes mellitus, uncontrolled. Dr. Lainez, vascular, right below-knee amputation on August 23 by Sheldon. Diabetes mellitus type 2, hypertension, paroxysmal atrial fib, off Cardizem and Lopressor, chronic Coumadin dependence, on nicotine gum, anemia of chronic disease, sepsis, right foot gangrene. PROGNOSIS: Guarded. Please see further orders. Prognosis is guarded on this patient. MMODL / IJN: [id number] /
[2023-08-24] MEDS: oxyCODONE-APAP 7.5-325MG 1 EACH TAB PO PRN ×4 (01:44→13:44)
[2023-08-24] MEDS: HYDROmorphone 1 MG/ML 1 ML SYRINGE IVP PRN ×3 (04:11→11:19)
[2023-08-24 04:40] VITALS: TEMP 98.1
[2023-08-24] MEDS: SODIUM CHLORIDE 0.9% 1,000 ML IV SCH (05:31)
[2023-08-24] MEDS: INSULIN ASPART (NovoLOG) 100 UNIT/ML VIAL SQ SCH (06:00)
[2023-08-24] MEDS: IPRATROPIUM-ALBUTEROL 3 ML NEB INHALATION SCH ×2 (08:21→11:28)
[2023-08-24] MEDS: DILTIAZEM CD 120 MG CAP.ER.24H PO SCH (08:24)
[2023-08-24] MEDS: NICOTINE GUM (POLACRILEX) 2 MG GUM BUCCAL PRN ×2 (08:24→11:22)
[2023-08-24] MEDS: LOSARTAN-HCTZ 50-12.5 MG 1 EACH TAB PO SCH (08:25)
[2023-08-24] MEDS: APIXABAN 5 MG TAB PO SCH (08:26)
[2023-08-24 09:13] LABS: African American GFR (CKD) >90 (>60 ml/min/1.73 sqM); Non-African American GFR(CKD) >90 (>60 ml/min/1.73 sqM)
[2023-08-24] MEDS: VANCOMYCIN 1,500 MG in SODIUM CHLORIDE 0.9% 500 ML 500 ML IVPB SCH (09:32)
[2023-08-24 09:58] VITALS: BP 161/96; PULSE 100
--- NOTE | 2023-08-24 10:08 | P.PN ---
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 Patient examined this morning at the bedside. Patient's spouse is present. Patient currently denies chest pain or pressure. He denies shortness of breath. Telemetry reveals sinus mechanism. Blood pressure is elevated with a systolic in the 150s to 170s. August 24, 2023 Patient examined this morning. Patient is sitting on the side of the bed. Patient denies chest pain or pressure. He denies shortness of breath. Telemetry reveals sinus mechanism with a heart rate in the 90s. Blood pressure remains elevated with a systolic around 150. PHYSICAL EXAM: VITAL SIGNS: Reviewed. GENERAL: Well-developed in no acute distress. NECK: Supple. No JVD or thyromegaly LUNGS: Respirations even and unlabored. Lungs essentially clear to auscultation bilaterally. HEART: Regular rate and rhythm. S1 and S2 heard. EXTREMITIES: Normal range of motion. No clubbing or cyanosis. Right BKA noted. ASSESSMENT: Osteomyelitis of right foot, status post BKA New-onset paroxysmal atrial fibrillation, currently maintaining sinus mechanism Hypertension, uncontrolled Diabetes, hemoglobin A1c 7% Peripheral arterial disease Nicotine dependence Intolerance to multiple antihypertensive medications, per patient PLAN: Increase Cardizem to 180 mg daily Continue to monitor blood pressure Smoking cessation recommended Patient would like to follow-up postdischarge with Dr. Garcia at the [place] location We will sign off. Please reconsult if needed. Nurse practitioner note has been reviewed by physician. Signing provider agrees with the documented findings, assessment, and plan of care. Objective - Vital Signs Vital signs: Vital Signs Temp 98.1 F 08/24/23 09:40 Pulse 100 08/24/23 09:40 Resp 18 08/24/23 09:40 BP 161/96 08/24/23 09:40 Pulse Ox 94 L 08/24/23 09:40 FiO2 Intake & Output 08/23/23 08/24/23 08/24/23 18:59 06:59 18:59 Intake Total 480 365 Output Total 1300 3900 750 Balance -820 -3900 -385 Intake: Oral 480 365 Output: Urine 1300 3900 750 Other: Voiding Method Toilet Toilet Urinal Urinal # Voids 2 - Labs CBC & Chem 7: 08/23/23 07:05 08/24/23 08:25
--- NOTE | 2023-08-24 10:35 | P.PN ---
Subjective Progress Note Date: 08/24/23 Principal diagnosis: Non-healing/infected wound right foot 2 for right below the knee amputation. He currently has stump display department manager, rigid dressing and knee immobilizer in place. He is afebrile. Pain has been well- managed and he is weaning from Dilaudid and just using oral pain medication. He does state though however he feels more of a spasm discomfort than sharp pain. He has been started on Eliquis by cardiology for his new onset atrial fibrillation. Patient plans on showering later today with assistance and shower chair. He was seen by physical therapy yesterday and has a walker at the bedside for discharge. Objective - Vital Signs Vital signs: Vital Signs Temp 98.1 F 08/24/23 09:40 Pulse 100 08/24/23 09:40 Resp 18 08/24/23 09:40 BP 161/96 08/24/23 09:40 Pulse Ox 94 L 08/24/23 09:40 FiO2 Intake & Output 08/23/23 08/24/23 08/24/23 18:59 06:59 18:59 Intake Total 480 365 Output Total 1300 3900 750 Balance -820 -3900 -385 Intake: Oral 480 365 Output: Urine 1300 3900 750 Other: Voiding Method Toilet Toilet Urinal Urinal # Voids 2 - Exam General appearance: The patient is alert, oriented, appears in no acute distress. HET: Head is normocephalic and atraumatic. Neck: Supple. Abdomen: Soft, nondistended. Extremities: Normal skin color and turgor. Incision well approximated with carole, minimal drainage. Stump display department manager and rigid dressing in place. Knee immobilizer in place. Neurological: No focal deficits. Strength and sensation are grossly intact. - Labs CBC & Chem 7: 08/23/23 07:05 08/24/23 08:25 Assessment and Plan Assessment: 1. Postop day #2 right below the knee amputation 2. Right foot gangrene with deep foot abscess. Nonhealing/infected wound right foot not felt amenable to further therapy. 3. Diabetic foot wounds 4. Tobacco abuse 5. History of atrial fibrillation Plan: 1. Patient fitted for stump sjrinker and rigid dressing by Lennie today. Keep stump display department manager and rigid dressing in place 2. Keep knee immobilizer in place 3. Wean Dilaudid, continue with oral pain medication as needed. May consider adding Valium for muscle spasms 4. Consult to PT and OT 5. Order for stump display department manager and rigid dressing given to case management as well as order for walker 6. Activity as tolerated Thank you for this consultation, patient is cleared from vascular surgery for discharge. The impression and plan of care has been dictated as directed. Dr. Scruggs I performed a history and examination of this patient, discussed the same with the dictator. I agree with the dictator's note ,documented as a scribe. Any additional findings or plans will be noted.
[2023-08-24 11:42] LABS: Glucose,Whole Blood 187 mg/dL (70-110)
[2023-08-25] MEDS ORDERED: VANCOMYCIN TROUGH DUE 1 EACH MISC MISCELLANE ONE (07:00)
[2023-08-25] MEDS ORDERED: DILTIAZEM CD 180 MG CAP.ER.24H PO SCH (09:00)
== END 2023-08-24 13:52 | disposition home or self-care (01) | DRG 710 ==
LOC: EC 15:05 → 3SCARD 17:05
PROVIDERS: ADMIT Family Medicine; ATTEND Family Medicine
PROC: 0Y6H0Z1 Detachment at Right Lower Leg, High, Open Approach (ICD-10-PCS; principal; 2023-08-22 11:00)
DX: A41.9 Sepsis, unspecified organism (principal); D63.8 Anemia in other chronic diseases classified elsewhere; E11.52 Type 2 diabetes mellitus with diabetic peripheral angiopathy with gangrene; E11.628 Type 2 diabetes mellitus with other skin complications; E11.69 Type 2 diabetes mellitus with other specified complication; F17.210 Nicotine dependence, cigarettes, uncomplicated; I10 Essential (primary) hypertension; I48.0 Paroxysmal atrial fibrillation; J44.9 Chronic obstructive pulmonary disease, unspecified; L02.611 Cutaneous abscess of right foot; I08.0 Rheumatic disorders of both mitral and aortic valves; M84.674A Pathological fracture in other disease, right foot, initial encounter for fracture; M86.9 Osteomyelitis, unspecified; Z79.01 Long term (current) use of anticoagulants; Z79.4 Long term (current) use of insulin; Z79.899 Other long term (current) drug therapy; Z28.310 Unvaccinated for COVID-19; Z28.21 Immunization not carried out because of patient refusal; Z88.1 Allergy status to other antibiotic agents; Z88.0 Allergy status to penicillin; Z88.2 Allergy status to sulfonamides
CPT/HCPCS: 36415; 71250; 80048; 80053; 80202; 82565; 83036; 83605; 85025; 85610; 85730; 87040; 93005; 93306; 94640; 94760; 96365; 96366; 96368; 99291